=== PATIENT | male | born 1945 | race Caucasian/White ===

== ENCOUNTER 2017-12-13 11:57 | Day surgery (SDC) | payer OTHER, SELFPAY ==
--- NOTE | 2017-12-13 | PATH_ITS ---
[facility] Accession Number: [id number] . 01 Material submitted: . PART A: POLYP AT 100CM PART B: POLYP AT 65CM . 02 Diagnosis: A. Colon Polyp at 100 cm, Polypectomy: Tubular adenoma. . B. Colon Polyp at 65 cm, Biopsy: Hyperplastic polyp. MRV/12/14/2017 . 02 Electronically signed: . Myke Garcia MD, PhD, Pathologist NPI- [id number] . 01 Gross description: . Received two formalin-filled containers both labeled with the patient's name. . A. In a container labeled polyp at 100 cm are two 0.2 to 0.3 cm portions of tissue. Entirely submitted in cassette A. B. In a container labeled polyp at 65 cm, the specimen consists of a 0.2 cm portion of tissue. Entirely submitted in cassette B. ([facility]:[id number]) /[facility] . 02 Pathologist provided ICD-10: D12.6 . 02 CPT . 342850, [id number] Performed at: 01 [facility] [address], [place], [place] [id number] MD Mike Conde MD Phone: [phone] Performed at: 02 [facility] [address] [place], [place] [id number] MD Paras Flores MD Phone: [phone]
[2017-12-13 12:25] VITALS: BP 131/82; PULSE 74; RESP 16; TEMP 37; O2SAT 94; BMI 32.2
[2017-12-13] MEDS: SODIUM CHLORIDE 0.9% 1,000 ML 200 ML IV (12:45)
--- NOTE | 2017-12-13 13:23 | PM.HP.1 ---
History of Present Illness Date Patient Seen: 12/13/17 Time Patient Seen: 13:23 Chief complaint: colonoscopy [id number] Narrative: Marlin 72-year-old gentleman who presents for screening colonoscopy. He reports that his last colonoscopy was 10 or 15 years ago. It was done at [facility] and he says they found 5 small polyps. He just received a letter in the mail recently telling him that it was time to repeat the procedure. He denies any problems or symptoms related to the function of the GI tract. 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 He denies any unexplained weight loss. He reports that his energy is wonderful. Patient History Family & Social History Family History: Reviewed 12/13/17 by Naz Coffman MD Social History: household members spouse Meds Home Medications Medication Instructions Recorded Confirmed Type CHOLECALCIFEROL (VITAMIN D3) 400 unit PO QDAY #0 08/17/12 12/13/17 History (Vitamin D3) Terazosin HCl (TERAZOSIN HCL) 1 mg PO QDAY #0 08/17/12 12/13/17 History [RED YEAST RICE] QDAY #0 08/17/12 History bupropion HCl 150 mg PO BID #0 08/17/12 12/13/17 History enalapril maleate 20 mg PO BID #0 08/17/12 12/13/17 History hydrochlorothiazide 25 mg PO QDAY #0 08/17/12 12/13/17 History levothyroxine 0.125 mg PO QDAY #0 08/17/12 12/13/17 History liothyronine [Cytomel] 5 mcg PO QDAY #0 08/17/12 12/13/17 History simvastatin [Zocor] 20 mg PO HS #0 08/17/12 12/13/17 History verapamil 240 mg PO BID #0 08/17/12 12/13/17 History amlodipine 10 mg 12/13/17 History magnesium 250 mg 12/13/17 History potassium 12/13/17 History Allergies Allergy/AdvReac Type Severity Reaction Status Date / Time No Known Drug Allergies Allergy Verified 12/13/17 12:12 Review of Systems Review of Systems All systems reviewed & are unremarkable except as noted in HPI and below Exam Vital Signs (past 8 hours): - 12/13/17 12:25 Temperature 98.6 F Pulse Rate 74 Respiratory Rate 16 Blood Pressure 131/82 Pulse Oximetry 94 Oxygen Delivery Method Room Air Narrative Exam Narrative: Pleasant, well-nourished, and well-developed gentleman in no distress. HEENT: Normocephalic atraumatic, pupils equal round reactive light accommodation with anicteric sclera Lungs: Clear bilaterally Heart: Regular rate rhythm without murmur rub or gallop Abdomen: Soft, nontender, active bowel sounds Extremities: Warm and well perfused without edema Assessment & Plan Plan: Assessment/Plan Narrative: Marlin 72-year-old gentleman here for screening colonoscopy. He does have a personal history of colon polyps but no family history of colon cancer. We discussed risks and benefits of procedure the patient has expressed desire to complete it today.
--- NOTE | 2017-12-13 13:26 | P.HP_ITS ---
History of Present Illness Date Patient Seen: 12/13/17 Time Patient Seen: 13:23 Chief complaint: colonoscopy [id number] Narrative: Marlin 72-year-old gentleman who presents for screening colonoscopy. He reports that his last colonoscopy was 10 or 15 years ago. It was done at [facility] and he says they found 5 small polyps. He just received a letter in the mail recently telling him that it was time to repeat the procedure. He denies any problems or symptoms related to the function of the GI tract. 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 He denies any unexplained weight loss. He reports that his energy is wonderful. Patient History Family & Social History Family History: Reviewed 12/13/17 by Naz Coffman MD Social History: household members spouse Meds Home Medications Medication Instructions Recorded Confirmed Type CHOLECALCIFEROL (VITAMIN D3) 400 unit PO QDAY #0 08/17/12 12/13/17 History (Vitamin D3) Terazosin HCl (TERAZOSIN HCL) 1 mg PO QDAY #0 08/17/12 12/13/17 History [RED YEAST RICE] QDAY #0 08/17/12 History bupropion HCl 150 mg PO BID #0 08/17/12 12/13/17 History enalapril maleate 20 mg PO BID #0 08/17/12 12/13/17 History hydrochlorothiazide 25 mg PO QDAY #0 08/17/12 12/13/17 History levothyroxine 0.125 mg PO QDAY #0 08/17/12 12/13/17 History liothyronine [Cytomel] 5 mcg PO QDAY #0 08/17/12 12/13/17 History simvastatin [Zocor] 20 mg PO HS #0 08/17/12 12/13/17 History verapamil 240 mg PO BID #0 08/17/12 12/13/17 History amlodipine 10 mg 12/13/17 History magnesium 250 mg 12/13/17 History potassium 12/13/17 History Allergies Allergy/AdvReac Type Severity Reaction Status Date / Time No Known Drug Allergies Allergy Verified 12/13/17 12:12 Review of Systems Review of Systems All systems reviewed & are unremarkable except as noted in HPI and below Exam Vital Signs (past 8 hours): - 12/13/17 12:25 Temperature 98.6 F Pulse Rate 74 Respiratory Rate 16 Blood Pressure 131/82 Pulse Oximetry 94 Oxygen Delivery Method Room Air Narrative Exam Narrative: Pleasant, well-nourished, and well-developed gentleman in no distress. HEENT: Normocephalic atraumatic, pupils equal round reactive light accommodation with anicteric sclera Lungs: Clear bilaterally Heart: Regular rate rhythm without murmur rub or gallop Abdomen: Soft, nontender, active bowel sounds Extremities: Warm and well perfused without edema Assessment & Plan Plan: Assessment/Plan Narrative: Mralin 72-year-old gentleman here for screening colonoscopy. He does have a personal history of colon polyps but no family history of colon cancer. We discussed risks and benefits of procedure the patient has expressed desire to complete it today.
[2017-12-13] MEDS: fentaNYL 250 MCG/5 ML INJ IV (13:54)
[2017-12-13] MEDS: MIDAZOLAM 5 MG/5 ML VIAL IV (13:54)
--- NOTE | 2017-12-13 14:00 | P.OP_ITS ---
Operative Date/Time/Diagnoses Date of procedure: 12/13/17 Time of procedure: 13:56 Pre-op diagnosis: Personal history of colon polyps Screening colonoscopy Post-op diagnosis: same Procedure & Clinicians Procedure: Colonoscopy to the cecum with polypectomy x2 Same procedure as scheduled: Yes Indications: Last colonoscopy more than 10 years ago Surgeon: Naz Coffman Click Yes if Unassisted: Yes Anesthesia Type: Sedation (Versed 8 mg; fentanyl 200 mcg) Operative Notes Findings: 1. Excellent prep 2. A semi pedunculated polyp at 100 cm from the anal verge, approximately 5 mm- removed with snare and cautery and retained for pathology 3. A 2nd sessile polyp-approximately 3 mm-at 65 cm from the anal verge. Removed with cold forceps and retained for pathology 4. Mildly tortuous sigmoid colon 5. Grade 1-2 internal hemorrhoids 6. Sigmoid diverticulosis without false passages, inflammation, or stigmata of recent hemorrhage. Closure Type: not applicable Specimen(s): other (Polyps listed above) Estimated Blood Loss (mL): 1 Procedure in detail: After obtaining informed consent, the patient was brought to the GI suite and placed in the left lateral decubitus position on the examination table. After placement of appropriate monitors, the patient was given incremental doses of Versed and Fentanyl until an appropriate level of sedation was achieved. A time out was held per SCOAP protocol. A digital rectal examination was performed and did not reveal any masses or obstructing lesions. The colonoscope was gently passed into the patient's anus and the entire colon navigated to the level of the cecum with minimal difficulty. Once in the cecum, the scope was withdrawn being sure to go before and beyond all mucosal folds and prominences and get an excellent examination. The findings are noted above. At the level of the rectal vault, the scope was retroflexed and the internal anal canal was examined. The scope was straightened and air aspirated from the colon. The instrument was removed from the patient's body and the procedure was concluded. The patient was allowed to awaken from sedation without difficulty and taken to the post-anesthesia care unit in good condition. Total sedation time 23 min Total withdrawal time 19 min 33 sec Complications: none Condition: stable Disposition: PACU Plan for aftercare: 1. Discharge to home 2. Plan for next colonoscopy in 5 years or as clinically indicated 3. We will contact you with pathology results and any additional recommendations or change in recommendation based on pathology.
[2017-12-13 14:07] VITALS: BP 128/80; PULSE 63; RESP 15; TEMP 36.7; O2SAT 93
--- NOTE | 2017-12-13 14:12 | SUR.PHASEII ---
OPERATIVE REPORT GIVEN TO PATIENT AT DISCHARGE PER DR. MCKEON.
== END 2017-12-13 14:19 | disposition home or self-care (01) ==
PROVIDERS: PCP Internal Medicine; Visit Provider Surgery
PROC: 0DJD8ZZ Inspection of Lower Intestinal Tract, Via Natural or Artificial Opening Endoscopic (ICD-10-PCS; CPT 45378; principal; 2017-12-13 13:00)
DX: Z86.010 Personal history of colon polyps (principal); K64.1 Second degree hemorrhoids; K57.30 Diverticulosis of large intestine without perforation or abscess without bleeding; D12.6 Benign neoplasm of colon, unspecified
CPT/HCPCS: 45385; 45380; 99152; 99153; J2250; J3010

== ENCOUNTER → 2017-12-20 07:42 | Outpatient (CLI) | payer OTHER, SELFPAY ==
[2017-12-20 08:36] LABS: Add Manual Diff / Slide Review NO; Basophils Percent Auto 1.1 % (0-2); Eosinophils Percent Auto 6.9 % (2-4); Hematocrit 41.2 % (41-53); Hemoglobin 14.2 g/dL (13.5-17.5); Lymphocytes Percent Auto 31.1 % (25-40); Mean Corpuscular HGB Conc 34.5 % (30-36); Mean Corpuscular Hemoglobin 32.5 PG (26-34); Mean Corpuscular Volume 94.2 fL (80-100); Monocytes Percent Auto 9.3 % (3-14); Neutrophils Absolute Auto 3200 /uL (3000-5900); Neutrophils Percent Auto 51.6 % (50-75); Platelet Count 208 X10^3/uL (150-400); Red Blood Cell Count 4.37 X10^6/uL (4.5-5.9); Red Cell Distribution Width 12.5 % (11.6-14.8); White Blood Cell Count 6.2 X10^3/uL (4.5-11.0)
[2017-12-20 08:52] LABS: Alanine Aminotransferase 32 IU/L (21-72); Albumin Globulin Ratio 1.5 (1.0-2.8); Alkaline Phosphatase 75 U/L (38-126); Aspartate Aminotransferase 22 IU/L (17-59); BUN Creatinine Ratio 19.1 (6-22); Bilirubin Total 0.4 mg/dL (0.2-1.3); Blood Urea Nitrogen 21 mg/dL (9-20); Carbon Dioxide 24 mmol/L (22-32); Chloride 106 mmol/L (98-107); Cholesterol 140 mg/dL (140-199); Estimated Glomerular Filt Rate > 60.0 mL/min (>60); Globulin 2.6 g/dL (1.7-4.1); Glucose 123 mg/dL (80-110); HDL Cholesterol 39 mg/dL (40-60); HEMOLYSIS < 15 (0-50); LDL Cholesterol Calculated 78 mg/dL (<100); Potassium 3.8 mmol/L (3.4-5.1); Sodium 145 mmol/L (137-145); Total Protein 6.6 g/dL (6.3-8.2); Triglycerides 116 mg/dL (35-150)
== END ==
PROVIDERS: PCP Internal Medicine; Visit Provider Internal Medicine
DX: I10 Essential (primary) hypertension (principal); E78.00 Pure hypercholesterolemia, unspecified; E03.9 Hypothyroidism, unspecified
CPT/HCPCS: 36415; 80053; 80061; 84443; 85025

== ENCOUNTER → 2018-06-14 09:59 | Outpatient (CLI) | payer OTHER, SELFPAY ==
[2018-06-14 11:15] LABS: Free T3, Triiodothyronine Free 4.04 pg/mL (2.77-5.27); Free T4, Direct Thyroxine 1.14 ng/dL (0.78-2.19)
[2018-06-14 11:28] LABS: Thyroid Stimulating Hormone 1.78 uIU/mL (0.47-4.68)
== END ==
PROVIDERS: PCP Internal Medicine; Visit Provider Internal Medicine
DX: E03.9 Hypothyroidism, unspecified (principal)
CPT/HCPCS: 36415; 84439; 84443; 84481

== ENCOUNTER → 2018-07-14 10:29 | Outpatient (CLI) | payer OTHER, SELFPAY ==
[2018-07-14 11:27] LABS: Appearance Urine UA CLEAR; Bilirubin Urine UA NEGATIVE (NEGATIVE); Color Urine UA YELLOW; Glucose Urine UA NEGATIVE (Negative); Ketones Urine UA NEGATIVE (NEGATIVE); Leukocyte Esterase Urine UA NEGATIVE (NEGATIVE); Nitrite Urine UA NEGATIVE (Negative); Occult Blood Urine UA 1+ (Negative); Protein Urine UA NEGATIVE (Negative); Specific Gravity Urine UA 1.015 (1.000-1.035); Urobilinogen Urine UA 0.2 E.U./dL (0.2); pH Urine UA 6.5 (4.5-8.0)
[2018-07-14 11:38] LABS: Bacteria Urine Occasional (0-1); RBC Urine 0-1/HPF (0-5/HPF); WBC Urine 0-1/HPF (0-5/HPF)
[2018-07-14 11:39] LABS: Culture Indicated Urine Cult Not Indicated
== END ==
PROVIDERS: PCP Internal Medicine; Visit Provider Internal Medicine
DX: N40.1 Benign prostatic hyperplasia with lower urinary tract symptoms (principal)
CPT/HCPCS: 81001

== ENCOUNTER → 2019-01-15 10:04 | Outpatient (CLI) | payer OTHER, SELFPAY ==
[2019-01-15 11:27] LABS: Alanine Aminotransferase 23 IU/L (<50); Albumin 4.1 g/dL (3.5-5.0); Albumin Globulin Ratio 1.5 (1.0-2.8); Alkaline Phosphatase 68 U/L (38-126); Aspartate Aminotransferase 26 IU/L (17-59); BUN Creatinine Ratio 18.3 (6-22); Bilirubin Total 0.6 mg/dL (0.2-1.3); Blood Urea Nitrogen 22 mg/dL (9-20); Calcium 9.5 mg/dL (8.4-10.2); Carbon Dioxide 29 mmol/L (22-32); Chloride 102 mmol/L (98-107); Cholesterol 162 mg/dL (140-199); Estimated Glomerular Filt Rate 59.5 mL/min (>60); Globulin 2.7 g/dL (1.7-4.1); Glucose 112 mg/dL (80-110); HDL Cholesterol 40 mg/dL (40-60); HEMOLYSIS < 15 (0-50); LDL Cholesterol Calculated 98 mg/dL (<100); Potassium 3.8 mmol/L (3.4-5.1); Sodium 136 mmol/L (137-145); Total Protein 6.8 g/dL (6.3-8.2); Triglycerides 121 mg/dL (35-150)
[2019-01-15 11:58] LABS: TSH w/ Reflex to FT4 2.62 uIU/mL (0.47-4.68)
== END ==
PROVIDERS: PCP Internal Medicine; Visit Provider Internal Medicine
DX: I10 Essential (primary) hypertension (principal); E78.00 Pure hypercholesterolemia, unspecified; F32.9 Major depressive disorder, single episode, unspecified; E03.9 Hypothyroidism, unspecified
CPT/HCPCS: 36415; 80053; 80061; 84443

== ENCOUNTER → 2019-08-17 08:34 | Outpatient (CLI) | payer MEDICARE, SELFPAY ==
[2019-08-17 10:33] LABS: BUN Creatinine Ratio 21.1 (6-22); Blood Urea Nitrogen 27 mg/dL (9-20); Calcium 9.2 mg/dL (8.4-10.2); Carbon Dioxide 26 mmol/L (22-32); Chloride 104 mmol/L (98-107); Estimated Glomerular Filt Rate 55.2 mL/min (>60); Glucose 103 mg/dL (80-110); HEMOLYSIS < 15 (0-50); Sodium 137 mmol/L (137-145)
== END ==
PROVIDERS: PCP Internal Medicine; Referring Provider Internal Medicine; Visit Provider Internal Medicine
DX: I10 Essential (primary) hypertension (principal); E03.9 Hypothyroidism, unspecified
CPT/HCPCS: 36415; 80048; 84443

== ENCOUNTER → 2020-02-11 09:00 | Outpatient (CLI) | payer MEDICARE, SELFPAY ==
--- NOTE | 2020-02-11 | DI.US.S_ITS ---
PROCEDURE: US EXTREMITY NONVASC UPPER LT INDICATIONS: Localized swelling, mass and lump, left upper limb TECHNIQUE: Real-time scanning was performed of the area of current clinical concern, left clavicle/shoulder area, with image documentation. COMPARISON: None. FINDINGS: There is an ovoid fluid-filled structure in the area of current clinical concern without elevated internal or peripheral vascularity, containing small amounts of low level internal echoes, mobile, measuring up to 1.8 x 2.8 x 3.4 cm. This is superior to the clavicle in this area. IMPRESSION: Uncertain etiology of an oval fluid-filled collection containing a small amount of internal debris in the area of current left-sided clinical concern, left clavicle area. No internal or abnormal peripheral blood flow. Further assessment by contrast-enhanced MR scanning may be warranted. Dictated by: Ajith Gaines M.D. on 02/11/2020 at 9:33 Approved by: Ajith Gaines M.D. on 02/11/2020 at 9:36
== END ==
PROVIDERS: PCP Internal Medicine; Referring Provider Physician Assistant; Visit Provider Physician Assistant
DX: R22.32 Localized swelling, mass and lump, left upper limb (principal)
CPT/HCPCS: 76882

== ENCOUNTER → 2020-02-26 09:35 | Outpatient (CLI) | payer MEDICARE, SELFPAY ==
--- NOTE | 2020-02-26 | DI.MRI.S_ITS ---
PROCEDURE: MR SHOULDER LT WO/W CON INDICATIONS: LOCALIZED SWELLING/MASS TECHNIQUE: Noncontrast oblique coronal T1 spin echo and T2 fast spin echo with fat saturation, oblique sagittal T1 spin echo and T2 fast spin echo with fat saturation, axial T1 spin echo and T2 fast spin echo with fat saturation through the shoulder. Post-contrast oblique coronal, oblique sagittal, and axial T1 spin echo with fat saturation through the shoulder. COMPARISON: None. FINDINGS: Image quality: Excellent. Rotator cuff: Full-thickness tear of the supraspinatus and infraspinatus tendons noted, measuring 3.9 cm in AP dimension as seen on sagittal pulse sequences. Teres minor appears grossly intact. Subscapularis tendinopathy and thickening with high-grade partial thickness articular sided tear. No definite muscle atrophy seen although there is fatty infiltration of the infraspinatus muscle. Bones and bursae: No bone marrow contusions or fractures. Moderate acromioclavicular joint degeneration. Adjacent to the AC joint, there is a large T2 hyperintense modular is cystic appearing lesion with peripheral rim enhancement. This is in the area marked by the fiducial placed on the skin surface. This measures 2.8 x 2.9 by 2.1 cm. Acromion demonstrates conventional anatomy, without an os acromiale. Capsule and soft tissues: Labrum: Circumferential, chronic macerated labral tear/degeneration.. Medial subluxation of the long head biceps tendon is seen. No definite complete rupture, although there is tendinopathy The rotator interval appears normal, without fibrosis. Coracohumeral ligament intact. IMPRESSION: Large cystic appearing lesion in the area of pain and palpable abnormality. No definite internal enhancement. Findings are technically nonspecific and recommend clinical correlation/management. Full-thickness tear of the supraspinatus and infraspinatus tendons. High-grade partial thickness articular sided tear of the subscapularis tendon with associated medial subluxation of the long head biceps tendon. Circumferential chronic ill-defined degenerative tear. Dictated by: Stefan He M.D. on 02/26/2020 at 11:31 Approved by: Stefan He M.D. on 02/26/2020 at 11:48
== END ==
PROVIDERS: PCP Internal Medicine; Referring Provider Physician Assistant; Visit Provider Physician Assistant
DX: R22.32 Localized swelling, mass and lump, left upper limb (principal); M75.122 Complete rotator cuff tear or rupture of left shoulder, not specified as traumatic; M19.012 Primary osteoarthritis, left shoulder
CPT/HCPCS: 73223

== ENCOUNTER → 2020-05-21 07:32 | Outpatient (CLI) | payer OTHER, SELFPAY ==
[2020-05-21 08:58] LABS: BUN Creatinine Ratio 20.5 (6-22); Blood Urea Nitrogen 24 mg/dL (9-20); Calcium 8.9 mg/dL (8.4-10.2); Carbon Dioxide 26 mmol/L (22-32); Chloride 105 mmol/L (98-107); Estimated Glomerular Filt Rate > 60.0 mL/min (>60); Glucose 108 mg/dL (80-110); HEMOLYSIS < 15 (0-50); Potassium 3.7 mmol/L (3.4-5.1); Sodium 139 mmol/L (137-145)
[2020-05-21 09:43] LABS: TSH w/ Reflex to FT4 3.36 uIU/mL (0.47-4.68)
== END ==
PROVIDERS: PCP Internal Medicine; Referring Provider Internal Medicine; Visit Provider Internal Medicine
DX: I10 Essential (primary) hypertension (principal); E03.9 Hypothyroidism, unspecified
CPT/HCPCS: 36415; 80048; 84443

== ENCOUNTER → 2020-09-16 15:51 | Outpatient (CLI) | payer OTHER, SELFPAY ==
--- NOTE | 2020-09-16 15:54 | DI.RAD.S_ITS ---
PROCEDURE: XR SHOULDER RT MIN 2V INDICATIONS: fall against right shoulder TECHNIQUE: 3 views of the shoulder were acquired. COMPARISON: [facility], , SHOULDER MINIMUM 2 VIEW LEFT, 02/19/2013, 3:06. FINDINGS: Bones: No fractures or dislocations. No suspicious bony lesions. Visualized ribs appear intact. Mild periarticular osteophyte formation at the acromioclavicular and glenohumeral joints. Soft tissues: No suspicious soft tissue calcifications. IMPRESSION: Osteoarthritis. No acute fracture. No osseous lesion. If symptoms and/or clinical suspicion for pathology persist, further assessment with repeat, or advanced imaging (e.g., CT, MRI, or bone scan) may be helpful for further assessment. Dictated by: Georgie Nuñez M.D. on 09/16/2020 at 16:50 Approved by: Georgie Nuñez M.D. on 09/16/2020 at 16:51
== END ==
PROVIDERS: PCP Internal Medicine; Referring Provider Physician Assistant; Visit Provider Physician Assistant
DX: M25.511 Pain in right shoulder (principal); M19.011 Primary osteoarthritis, right shoulder
CPT/HCPCS: 73030

== ENCOUNTER → 2020-11-21 08:49 | Outpatient (CLI) | payer OTHER, SELFPAY ==
[2020-11-21 10:04] LABS: Add Manual Diff / Slide Review NO; Basophils Absolute Auto 100 /uL (0-100); Basophils Percent Auto 0.9 % (0-2); Eosinophils Absolute Auto 300 /uL (0-450); Eosinophils Percent Auto 4.2 % (2-4); Hematocrit 41.5 % (41-53); Hemoglobin 13.8 g/dL (13.5-17.5); Lymphocytes Absolute Auto 1800 /uL (1100-4500); Lymphocytes Percent Auto 30.1 % (25-40); Mean Corpuscular HGB Conc 33.2 % (30-36); Mean Corpuscular Hemoglobin 31.5 PG (26-34); Mean Corpuscular Volume 94.8 fL (80-100); Monocytes Absolute Auto 500 /uL (0-900); Monocytes Percent Auto 7.8 % (3-14); Neutrophils Absolute Auto 3500 /uL (1500-7000); Platelet Count 228 X10^3/uL (150-400); Red Blood Cell Count 4.38 X10^6/uL (4.5-5.9); Red Cell Distribution Width 13.8 % (11.6-14.8); White Blood Cell Count 6.1 X10^3/uL (4.5-11.0)
[2020-11-21 10:23] LABS: Alanine Aminotransferase 16 IU/L (<50); Albumin Globulin Ratio 1.6 (1.0-2.8); Alkaline Phosphatase 98 U/L (38-126); Aspartate Aminotransferase 22 IU/L (17-59); BUN Creatinine Ratio 18.7 (6-22); Bilirubin Total 0.2 mg/dL (0.2-1.3); Blood Urea Nitrogen 20 mg/dL (9-20); Calcium 9.7 mg/dL (8.4-10.2); Carbon Dioxide 27 mmol/L (22-32); Chloride 106 mmol/L (98-107); Cholesterol 150 mg/dL (140-199); Estimated Glomerular Filt Rate > 60.0 mL/min (>60); Globulin 2.5 g/dL (1.7-4.1); Glucose 111 mg/dL (80-110); HDL Cholesterol 57 mg/dL (40-60); HEMOLYSIS < 15 (0-50); LDL Cholesterol Calculated 70 mg/dL (<100); Sodium 142 mmol/L (137-145); Total Protein 6.5 g/dL (6.3-8.2); Triglycerides 115 mg/dL (35-150)
[2020-11-21 10:52] LABS: Prostate Specific Antigen 3.54 ng/mL (0.10-4.00)
== END ==
PROVIDERS: PCP Internal Medicine; Referring Provider Internal Medicine; Visit Provider Internal Medicine
DX: N18.9 Chronic kidney disease, unspecified (principal); I10 Essential (primary) hypertension; R97.20 Elevated prostate specific antigen [PSA]
CPT/HCPCS: 36415; 80053; 80061; 84153; 85025

== ENCOUNTER 2021-03-09 18:12 | Emergency (ER) | payer OTHER, SELFPAY ==
[2021-03-09 18:25] VITALS: BP 185/81; PULSE 63; RESP 18; TEMP 36.6; O2SAT 99
--- NOTE | 2021-03-09 18:38 | DI.US.S_ITS ---
PROCEDURE: US PERIPH VENOUS LOW EXTREM RT INDICATIONS: PAIN, EDEMA; HX DVT TECHNIQUE: Real-time imaging, as well as color and pulse Doppler interrogation, were performed of the lower extremity deep veins from the inguinal ligament to the popliteal fossa. COMPARISON: None. FINDINGS: The common femoral, femoral and popliteal veins are normally compressible, and free of intraluminal thrombus. Color and pulse Doppler demonstrate normal phasic intraluminal flow. There is normal augmentation response to distal compression maneuver. IMPRESSION: 1. No evidence of deep venous thrombosis in the right lower extremity. Dictated by: Mike Taylor M.D. on 03/09/2021 at 20:26 Approved by: Mike Taylor M.D. on 03/09/2021 at 20:27
--- NOTE | 2021-03-09 20:11 | ED.EXTPRO ---
HPI - Extremity Problem General Chief complaint: Extremity Problem,Nontraumatic Stated complaint: HX Blood Clots, Thinks Blood Clot in Rt Leg Time Seen by Provider: 03/09/21 20:05 Source: patient Mode of arrival: Ambulatory History of Present Illness HPI Narrative: Patient here for ongoing 1 week constant right medial knee discomfort. Does not interfere with his walking. No chest pain no dyspnea. No known injury. No hip or ankle or foot pain. No numbness or tingling or weakness to the right leg. Or foot. History of to blood clots to the right leg back in 2012. Stop taking anticoagulation because he ran out of it back in 2012. Has been doing well since then. He thinks he developed the DVTs back then because he was immunization in was traveling a lot. Blood pressure noted. He states he slightly anxious because wondering if there was another blood clot. Related Data Home Medications Medication Instructions Recorded Confirmed CHOLECALCIFEROL (VITAMIN D3) 400 unit PO QDAY #0 08/17/12 09/16/20 (Vitamin D3) Terazosin HCl (TERAZOSIN HCL) 1 mg PO QDAY #0 08/17/12 09/16/20 [RED YEAST RICE] QDAY #0 08/17/12 09/16/20 bupropion HCl 75 mg tablet 150 mg PO BID #0 08/17/12 09/16/20 enalapril maleate 20 mg tablet 20 mg PO BID #0 08/17/12 09/16/20 hydrochlorothiazide 25 mg tablet 25 mg PO QDAY #0 08/17/12 09/16/20 levothyroxine 112 mcg tablet 0.125 mg PO QDAY #0 08/17/12 09/16/20 liothyronine 5 mcg tablet (Cytomel) 5 mcg PO QDAY #0 08/17/12 09/16/20 simvastatin 20 mg tablet (Zocor) 20 mg PO HS #0 08/17/12 09/16/20 verapamil 240 mg tablet,extended 240 mg PO BID #0 08/17/12 09/16/20 release amlodipine 10 mg 12/13/17 09/16/20 magnesium 250 mg 12/13/17 09/16/20 potassium 12/13/17 09/16/20 Allergies Allergy/AdvReac Type Severity Reaction Status Date / Time No Known Drug Allergies Allergy Verified 09/16/20 21:04 Review of Systems Review of Systems Narrative: GENERAL: Denies chills, fatigue, malaise, fever, sweats. HEENT: Denies sinus pain, ear pain, sore throat RESPIRATORY: Denies dyspnea, cough CARDIOVASCULAR: Denies chest pain, palpitations GASTROINTESTINAL: Denies nausea, vomiting, abdominal pain : Denies dysuria, frequency, hematuria MUSCULOSKELETAL: Positive muscle or bony pain SKIN: Denies rash, skin lesions NEUROLOGIC: Denies weakness, numbness ROS Unobtainable: All systems reviewed & are unremarkable except as noted in HPI and below Patient History Social History household members: spouse Smoking Status: Never smoker Smoking Status: Never smoker alcohol intake frequency: 0-2 drinks per day Exam Narrative Exam Narrative: GENERAL: in no distress, not toxic not dyspneic HEAD: Normocephalic. EYES: Pupils equal round No scleral icterus. NECK: Trachea midline. CARDIOVASCULAR: Regular rate and rhythm without murmurs RESPIRATORY: Clear to auscultation. Breath sounds equal bilaterally. No wheezes, rales, or rhonchi. EXTREMITIES: No gross deformities. Pants removed. Shoes and socks removed, leg and foot warm soft and pink. Strong pedal pulse. Like to check to foot and toes. Examination right knee. There is no pain or laxity of the right knee with anterior posterior medial lateral and rotational stress of the right leg. No overlying erythema or effusion of the knee. Negative Candace and Coon test. No palpable cords in the calf. Calf is nontender. BACK: No flank tenderness. NEURO: AOx4. SKIN: Warm and dry PSYCH: Not anxious, is cooperative Initial Vital Signs Initial Vital Signs: Vital Signs Temperature 97.9 F 03/09/21 18:25 Pulse Rate 63 03/09/21 18:25 Respiratory Rate 18 03/09/21 18:25 Blood Pressure 185/81 H 03/09/21 18:25 Pulse Oximetry 99 03/09/21 18:25 Course Course Course Narrative: No new issues during course of stay. Orders Ordered: ED Orders 03/09/21 18:38 US periph venous low extrem rt Stat Reevaluation(s) Reevaluation #1: Reviewed preliminary results of ultrasound the leg with patient. He is not want to wait for final report. At this time no DVT preliminary. Blood pressure noted. He does not want any treatment for his blood pressure. States it is always high and he will follow up with his family doctor. Time: 20:15 Vital Signs Vital signs: Vital Signs - 8 hr 03/09/21 18:25 Temperature 97.9 F Pulse Rate 63 Respiratory Rate 18 Blood Pressure 185/81 H Pulse Oximetry 99 MDM - Extremity (Nontraumatic) Differential Diagnosis Differential diagnosis: Likely superficial thrombophlebitis, deep venous thrombosis of upper extremity, deep vein thrombosis of lower extremity and other (New fusion/arthritis) Imaging Data US - DVT: Radiologist's Impression: [address] [address] Ultrasound Report Signed Patient: Chan Pablo MR#: [id number] : 1945 Acct:[id number] Age/Sex: 75 / M Date of Service: 03/09/21 Loc: ED Accession Number: [id number] ?? Procedure: US periph venous low extrem rt Ordering Provider: Matthew Agustin MD PROCEDURE:? US PERIPH VENOUS LOW EXTREM RT ? INDICATIONS:? PAIN, EDEMA; HX DVT ? TECHNIQUE:? Real-time imaging, as well as color and pulse Doppler interrogation, were performed of the lower extremity deep veins from the inguinal ligament to the popliteal fossa.? ? COMPARISON:? None. ? FINDINGS:? The common femoral, femoral and popliteal veins are normally compressible, and free of intraluminal thrombus.? Color and pulse Doppler demonstrate normal phasic intraluminal flow.? There is normal augmentation response to distal compression maneuver. ? ? IMPRESSION:? ? 1. No evidence of deep venous thrombosis in the right lower extremity. ? ? Dictated by: Mike Taylor M.D. on 03/09/2021 at 20:26 ? ? Approved by: Mike Taylor M.D. on 03/09/2021 at 20:27 ? [facility] Narrative Medical decision making narrative: Appropriate for discharge home. Exam and imaging reassuring. Blood pressure reviewed patient. He does not want any treatment here. He states he will follow up with his family doctor. No chest or lung complains no numbness tingling weakness no headache. Patient does know any imaging of the knee. Denies any direct knee pain. No injury. No pain with walking. He states he feels much better regarding ultrasound results. Return precautions reviewed with him. Discharge Plan Departure Patient Disposition: Home Clinical Impression: Acute pain of right knee Instructions: DI for Knee Pain Activity Restrictions/Additional Instructions: Return if worse if any questions or concerns. Call provided orthopedic office tomorrow for office recheck in a week. Return if any chest pain shortness breath or any calf pain. Prescriptions: No Action enalapril maleate 20 MG tablet 20 mg PO BID Qty: 0 0RF bupropion HCl 75 MG tablet 150 mg PO BID Qty: 0 0RF verapamil 240 MG tablet extended release 240 mg PO BID Qty: 0 0RF liothyronine [Cytomel] 5 MCG tablet 5 mcg PO QDAY Qty: 0 0RF hydrochlorothiazide 25 MG tablet 25 mg PO QDAY Qty: 0 0RF levothyroxine 112 MCG tablet 0.125 mg PO QDAY Qty: 0 0RF simvastatin [Zocor] 20 MG tablet 20 mg PO HS Qty: 0 0RF CHOLECALCIFEROL (VITAMIN D3) (Vitamin D3) 400 unit PO QDAY Qty: 0 0RF Label Comments: hasn't taken in months Terazosin HCl (TERAZOSIN HCL) 1 mg PO QDAY Qty: 0 0RF [RED YEAST RICE] QDAY Qty: 0 0RF amlodipine 10 mg 10 mg 0RF magnesium 250 mg 250 mg 0RF potassium 0RF Referrals: Teodoro Hickey MD [Physician] - Valeria Toney MD [Primary Care Provider] -
== END 2021-03-09 20:23 | disposition home or self-care (01) ==
PROVIDERS: Emergency Provider Emergency Medicine; PCP Internal Medicine
DX: M25.561 Pain in right knee (principal)
CPT/HCPCS: 93971; 99281; 99283

== ENCOUNTER 2021-07-29 12:43 | Emergency (ER) | payer OTHER, SELFPAY ==
[2021-07-29 12:51] VITALS: BP 190/91; PULSE 72; RESP 15; TEMP 36.8; O2SAT 97; BMI 32.3
--- NOTE | 2021-07-29 12:58 | DI.US.S_ITS ---
PROCEDURE: US PERIP VENOUS LOW EXTREM RT INDICATIONS: rule out DVT TECHNIQUE: Real-time imaging, as well as color and pulse Doppler interrogation, were performed of the lower extremity deep veins from the inguinal ligament to the popliteal fossa. COMPARISON: [facility], , [facility] VENOUS LOW EXTREM RT, 03/09/2021, 19:05. FINDINGS: The common femoral, femoral and popliteal veins are normally compressible, and free of intraluminal thrombus. Color and pulse Doppler demonstrate normal phasic intraluminal flow. There is normal augmentation response to distal compression maneuver. IMPRESSION: No deep venous thrombosis. Dictated by: Ju Bradley M.D. on 07/29/2021 at 13:30 Approved by: Ju Bradley M.D. on 07/29/2021 at 13:30
--- NOTE | 2021-07-29 13:53 | DI.RAD.S_ITS ---
PROCEDURE: XR KNEE RT 3V INDICATIONS: swelling, pain, osteoarth/effusion? TECHNIQUE: 3 views of the knee were acquired. COMPARISON: None. FINDINGS: Bones: No fractures or dislocations. No suspicious bony lesions. Moderate medial, lateral and minimal to mild patellofemoral compartment narrowing. No erosions. There is linear calcification overlying the lateral patella. Soft tissues: Moderate joint effusion. No suspicious soft tissue calcifications. IMPRESSION: Moderate effusion. Linear calcification overlying the lateral patella suggestive of osteophyte. However, avulsion fracture cannot be definitively excluded if correlates with given history of trauma. Tricompartmental arthritic changes present. Dictated by: Ju Bradley M.D. on 07/29/2021 at 15:20 Approved by: Ju Bradley M.D. on 07/29/2021 at 15:23
--- NOTE | 2021-07-29 14:47 | ED.EXTPRO ---
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 Patient states that his right knee feels tight and has swelling in the posterior aspect. He denies any lower extremity edema that is new, he states that he has been up on his feet and staying busy over the last few days and has not done anything significantly exertional. Patient denies any recent fever, feeling ill, weakness, sensation changes, or any of those symptoms. Related Data Home Medications Medication Instructions Recorded Confirmed CHOLECALCIFEROL (VITAMIN D3) 400 unit PO QDAY ##0 08/17/12 09/16/20 (Vitamin D3) Terazosin HCl (TERAZOSIN HCL) 1 mg PO QDAY ##0 08/17/12 09/16/20 [RED YEAST RICE] QDAY ##0 08/17/12 09/16/20 bupropion HCl 75 mg tablet 150 mg PO BID ##0 08/17/12 09/16/20 enalapril maleate 20 mg tablet 20 mg PO BID ##0 08/17/12 09/16/20 hydrochlorothiazide 25 mg tablet 25 mg PO QDAY ##0 08/17/12 09/16/20 levothyroxine 112 mcg tablet 0.125 mg PO QDAY ##0 08/17/12 09/16/20 liothyronine 5 mcg tablet (Cytomel) 5 mcg PO QDAY ##0 08/17/12 09/16/20 simvastatin 20 mg tablet (Zocor) 20 mg PO HS ##0 08/17/12 09/16/20 verapamil 240 mg tablet,extended 240 mg PO BID ##0 08/17/12 09/16/20 release amlodipine 10 mg 12/13/17 09/16/20 magnesium 250 mg 12/13/17 09/16/20 potassium 12/13/17 09/16/20 Previous Rx's Medication Instructions Recorded diclofenac sodium 1 % topical gel 4 g topical QID PRN knee pain #100 07/29/21 grams Allergies Allergy/AdvReac Type Severity Reaction Status Date / Time No Known Drug Allergies Allergy Verified 07/29/21 12:52 Review of Systems <JASEN Amaya - Last Filed: 07/29/21 18:27> Review of Systems Narrative: General: denies fever, chills Head/Neck: denies headache, neck pain Eyes: denies visual changes, eye pain Cardio: denies chest pain, palpitations Respiratory: denies shortness of breath, cough GI: denies abdominal pain, nausea, vomiting, or diarrhea : denies dysuria, hematuria or flank pain MSK: Endorses right knee pain the posterior aspect and swelling, denies any muscle weakness, sensation changes, or wound Skin: denies rash, itching or wound Neuro: denies numbness, tingling, dizziness Patient History <JASEN Amaya - Last Filed: 07/29/21 18:27> Social History household members: spouse Smoking Status: Never smoker Smoking Status: Never smoker alcohol intake frequency: 0-2 drinks per day Substance Use Type: does not use Exam <JASEN Amaya - Last Filed: 07/29/21 18:27> Narrative Exam Narrative: Independently reviewed vitals signs and nursing notes. General: cooperative, comfortable, in no acute distress, well groomed Head: symmetrical facial expressions Eyes: equal round and reactive, EOMI, conjunctiva normal Nose: nares patent, no rhinorrhea Mouth/Throat: moist mucus membranes Cardiovascular: regular rate and rhythm, no peripheral edema, warm extremities, no dependent edema Respiratory: normal effort, able to speak in complete sentences, no audible wheezing, stridor, or rales. No retractions or tachypnea. GI: abdomen soft, nontender to palpation, nondistended, no masses, no exquisite tenderness with exam, without guarding or rebound. MSK: moves all extremities, neurovascularly intact, no weakness, normal tone Skin: brisk capillary refill, no rash, no erythema, edema to the posterior of his right knee, no tenderness to palpation, it is mild, no suprapatellar tenderness, no tenderness over LCL, MCL, patellar tendon, no discoloration, no fluctuance or open wound is. Neuro: normal speech and cognition, A&O x3 Psych: mental status is grossly normal, congruent mood, normal affect, pleasant and cooperative Initial Vital Signs Initial Vital Signs: Vital Signs Temperature 98.3 F 07/29/21 12:51 Pulse Rate 72 07/29/21 12:51 Respiratory Rate 15 07/29/21 12:51 Blood Pressure 190/91 H 07/29/21 12:51 Pulse Oximetry 97 07/29/21 12:51 Oxygen Delivery Method 07/29/21 12:51 <Mili Landry MD - Last Filed: 08/02/21 08:52> Initial Vital Signs Initial Vital Signs: Vital Signs Temperature 98.3 F 07/29/21 12:51 Pulse Rate 72 07/29/21 12:51 Respiratory Rate 15 07/29/21 12:51 Blood Pressure 190/91 H 07/29/21 12:51 Pulse Oximetry 97 07/29/21 12:51 Oxygen Delivery Method 07/29/21 12:51 Course <JASEN Amaya - Last Filed: 07/29/21 18:27> Orders Ordered: ED Orders 07/29/21 12:58 US periph venous low extrem rt Stat 07/29/21 13:53 XR knee RT 3V Stat Vital Signs Vital signs: Vital Signs - 8 hr 07/29/21 12:51 07/29/21 15:31 07/29/21 15:34 Temperature 98.3 F Pulse Rate 72 80 Respiratory Rate 15 18 Blood Pressure 190/91 H 191/101 H 176/106 H Pulse Oximetry 97 98 Oxygen Delivery Method Room Air Room Air <Mili Landry MD - Last Filed: 08/02/21 08:52> Orders Ordered: ED Orders 07/29/21 12:58 US periph venous low extrem rt Stat 07/29/21 13:53 XR knee RT 3V Stat Vital Signs Vital signs: Vital Signs - 8 hr 07/29/21 12:51 07/29/21 15:31 07/29/21 15:34 Temperature 98.3 F Pulse Rate 72 80 Respiratory Rate 15 18 Blood Pressure 190/91 H 191/101 H 176/106 H Pulse Oximetry 97 98 Oxygen Delivery Method Room Air Room Air MDM - Extremity (Nontraumatic) <Maki Jones, [facility] - Last Filed: 07/29/21 18:27> Imaging Data US - DVT: Radiologist's Impression: PROCEDURE:? US PERIPH VENOUS LOW EXTREM RT ? INDICATIONS:? rule out DVT ? TECHNIQUE:? Real-time imaging, as well as color and pulse Doppler interrogation, were performed of the lower extremity deep veins from the inguinal ligament to the popliteal fossa.? ? COMPARISON:? [facility], PERIPH VENOUS LOW EXTREM RT, 03/09/2021, 19:05. ? FINDINGS:? The common femoral, femoral and popliteal veins are normally compressible, and free of intraluminal thrombus.? Color and pulse Doppler demonstrate normal phasic intraluminal flow.? There is normal augmentation response to distal compression maneuver. ? ? IMPRESSION:? No deep venous thrombosis. ? ? Dictated by: Ju Bradley M.D. on 07/29/2021 at 13:30 ? ? Approved by: Ju Bradley M.D. on 07/29/2021 at 13:30 ? Extremity x-ray #1: Radiologist's Impression: PROCEDURE:? XR KNEE RT 3V ? INDICATIONS:? swelling, pain, osteoarth/effusion? ? TECHNIQUE:? 3 views of the knee were acquired.? ? COMPARISON:? None. ? FINDINGS:? ? Bones:? No fractures or dislocations.? No suspicious bony lesions.? Moderate medial, lateral and minimal to mild patellofemoral compartment narrowing.? No erosions.? There is linear calcification overlying the lateral patella. ? Soft tissues:? Moderate joint effusion.? No suspicious soft tissue calcifications.? ? ? IMPRESSION:? Moderate effusion.? Linear calcification overlying the lateral patella suggestive of osteophyte.? However, avulsion fracture cannot be definitively excluded if correlates with given history of trauma. ? Tricompartmental arthritic changes present. ? ? Dictated by: Ju Bradley M.D. on 07/29/2021 at 15:20 ? ? Approved by: Ju Bradley M.D. on 07/29/2021 at 15:23 ? MDM Narrative Medical decision making narrative: This is a pleasant 75-year-old male presents to the emergency department with posterior right knee swelling and sensation of taut skin with concern for DVT as patient has had a right lower extremity DVT in the past, most recently in 2010 and this is how he states it presented. Vascular ultrasound of peripheral venous lower extremity was negative for deep venous thrombosis, right knee x-ray obtained for likely joint effusion consideration, x-ray report shows tricompartmental arthritic changes present with a moderate effusion, linear calcification overlying the lateral patella suggestive of an osteophyte. Patient denies any recent trauma. Discussed immobilizing and patient states that he is quite active and does not feel like his knee is unstable at this time. Discussed wrapping with a compression bandage, he states that this is likely more realistic for him. Recommended this, rest, ice, topical Voltaren gel, Tylenol and more rest if it continues to be bothersome. Patient is appropriate and amenable to discharge home. Vital signs are stable on repeat examination is unremarkable. Patient has been informed of results. Patient has been given strict return to ER precautions for any new or worsening symptoms. Patient understands to follow up closely with outpatient providers as instructed. Patient understands plan and agrees to discharge home. All questions and concerns answered at this time. Discharge Plan Departure Patient Disposition: Home Clinical Impression: Edema of knee Instructions: DI for Knee Effusion, DI for Knee Pain, How to Apply an Elastic Wrap on Knee Activity Restrictions/Additional Instructions: *You have been diagnosed with soft tissue swelling behind her right knee without evidence of a deep vein thrombosis or a clot. This could be inflammation related to activity, you may try Voltaren gel, it is available [id number] or I have sent some to your pharmacy at [facility]. Please use ice and rest at the end of your day as long as you need to. Your last creatinine was 1.07 with a GFR over 60 however I would recommend avoiding NSAIDs orally to help preserve your kidney function. Make sure you are drinking plenty of water, resting, you may use an Srikanth bandage to help compress this so that is not swelling as large asit wants. Please follow-up with Dr. Toney if you have any ongoing concerns about this, or return to the emergency department if you have any sensation changes, worsening pain or swelling or signs of infection. Your x-ray does not show any fracture, it will be available to review online later, sorry it wasn't available to review today. *What to do: *Please continue to take your regular medications as directed. [x ] New medication prescriptions sent to your pharmacy: [ [facility]] [ ] New medication written as a paper prescription [ ] No new medications given *Please follow up with your primary care provider in 2-3 days, call for an appointment. Let them know you were seen in the Emergency Department and that we asked that you be seen for follow-up. We will electronically transmit a record of today's note if your PCP is in our system *If you do not have a primary care provider please contact [phone] to establish care with one of the [facility] primary care providers. *Return to Emergency Department if you should have any new, worsening or concerning symptoms, such as [fever greater than 101F, chills, worsening pain, persistent vomiting or other bothersome symptoms] Prescriptions: New diclofenac sodium 1 % gel 4 g topical QID PRN (Reason: knee pain) Qty: 100 0RF Rx Instructions: apply to single extremity location up to 4 times daily for pain and swelling. No Action enalapril maleate 20 MG tablet 20 mg PO BID Qty: 0 bupropion HCl 75 MG tablet 150 mg PO BID Qty: 0 verapamil 240 MG tablet extended release 240 mg PO BID Qty: 0 liothyronine [Cytomel] 5 MCG tablet 5 mcg PO QDAY Qty: 0 hydrochlorothiazide 25 MG tablet 25 mg PO QDAY Qty: 0 levothyroxine 112 MCG tablet 0.125 mg PO QDAY Qty: 0 simvastatin [Zocor] 20 MG tablet 20 mg PO HS Qty: 0 CHOLECALCIFEROL (VITAMIN D3) (Vitamin D3) 400 unit PO QDAY Qty: 0 Label Comments: hasn't taken in months Terazosin HCl (TERAZOSIN HCL) 1 mg PO QDAY Qty: 0 [RED YEAST RICE] QDAY Qty: 0 amlodipine 10 mg 10 mg magnesium 250 mg 250 mg potassium Referrals: Valeria Toney MD [Primary Care Provider] - Visit Report Forms: Patient Portal/API <Mili Landry MD - Last Filed: 08/02/21 08:52> Cosign ED Attending Anaature Attestation: I was immediately available in the department for consultation throughout this patient's visit. I agree with documentation as above. Mili Landry MD
[2021-07-29 15:31] VITALS: BP 191/101; PULSE 80; RESP 18; O2SAT 98
[2021-07-29 15:34] VITALS: BP 176/106
== END 2021-07-29 15:34 | disposition home or self-care (01) ==
PROVIDERS: Emergency Provider Nurse Practitioner Critical Care Medicine; PCP Internal Medicine
DX: M25.461 Effusion, right knee (principal)
CPT/HCPCS: 73562; 93971; 99281; 99283

== ENCOUNTER 2021-11-24 16:20 | Emergency (ER) | payer OTHER, SELFPAY ==
[2021-11-24 16:36] VITALS: BP 179/84; PULSE 62; RESP 18; TEMP 37.1; O2SAT 97
--- NOTE | 2021-11-24 16:38 | DI.RAD.S_ITS ---
PROCEDURE: XR CHEST 1V INDICATIONS: chest pain TECHNIQUE: One view of the chest was acquired. COMPARISON: None. FINDINGS: Surgical changes and devices: None. Lungs and pleura: Lungs are clear. No pleural effusions or pneumothorax. Mediastinum: Mediastinal contours appear normal. Heart size is normal. Bones and chest wall: No suspicious bony lesions. Overlying soft tissues appear unremarkable. IMPRESSION: No acute cardiopulmonary process demonstrated radiographically. Dictated by: Fredis Leggett M.D. on 11/24/2021 at 16:52 Approved by: Fredis Leggett M.D. on 11/24/2021 at 16:53
[2021-11-24 17:00] LABS: Add Manual Diff / Slide Review NO; Basophils Absolute Auto 0 /uL (0-100); Basophils Percent Auto 0.6 % (0-2); Eosinophils Absolute Auto 100 /uL (0-450); Eosinophils Percent Auto 2.2 % (2-4); Hemoglobin 15.4 g/dL (13.5-17.5); Lymphocytes Absolute Auto 2000 /uL (1100-4500); Lymphocytes Percent Auto 32.4 % (25-40); Mean Corpuscular HGB Conc 35.1 % (30-36); Mean Corpuscular Hemoglobin 32.6 PG (26-34); Monocytes Absolute Auto 500 /uL (0-900); Neutrophils Absolute Auto 3400 /uL (1500-7000); Neutrophils Percent Auto 55.8 % (50-75); Platelet Count 200 X10^3/uL (150-400); Red Blood Cell Count 4.73 X10^6/uL (4.5-5.9); Red Cell Distribution Width 12.8 % (11.6-14.8); White Blood Cell Count 6.1 X10^3/uL (4.5-11.0)
[2021-11-24 17:43] LABS: Alanine Aminotransferase 29 IU/L (<50); Albumin 4.3 g/dL (3.5-5.0); Albumin Globulin Ratio 1.3 (1.0-2.8); Alkaline Phosphatase 78 U/L (38-126); Aspartate Aminotransferase 30 IU/L (17-59); BUN Creatinine Ratio 15.9 (6-22); Bilirubin Total 0.6 mg/dL (0.2-1.3); Blood Urea Nitrogen 17 mg/dL (9-20); Calcium 9.4 mg/dL (8.4-10.2); Carbon Dioxide 24 mmol/L (22-32); Chloride 103 mmol/L (98-107); Creatine Kinase 103 U/L (55-170); Estimated Glomerular Filt Rate > 60 mL/min (>60); Globulin 3.2 g/dL (1.7-4.1); Glucose 101 mg/dL (80-110); HEMOLYSIS 26 (0-50); Lipase 86 U/L (23-300); Magnesium 2.2 mg/dL (1.6-2.3); Potassium 3.9 mmol/L (3.4-5.1); Sodium 140 mmol/L (137-145); Total Protein 7.5 g/dL (6.3-8.2)
[2021-11-24 17:54] LABS: Troponin I < 0.012 ng/mL (0.01-0.034)
[2021-11-24 17:58] LABS: CKMB % Relative Index 0.6 % (1.5-5.0)
[2021-11-24 20:06] VITALS: PULSE 69; O2SAT 97
[2021-11-24 20:10] VITALS: BP 173/92; PULSE 69; RESP 15; O2SAT 97
--- NOTE | 2021-11-24 20:10 | PC.NURSE ---
To room from triage - ambulatory with steady gait - placed on bladder cleaner with cycling BP and continuous pulse ox - denies chest pain at this time - states that he had a couple small events of the same discomfort in the WR but they have resolved - denies this feeling before as well as cardiac concerns other than HTN - states that it is a discomfort instead as opposed to a pain - denies changes with palpation of inspiration - states that a deep breath helps it feel better - states that the discomfort comes on and resolves within a few seconds - denies radiation, difficulty breathing or swallowing - feels fine otherwise - alert and oriented - PWD with respirations equal and unlabored bilaterally
--- NOTE | 2021-11-24 20:23 | ED_ITS ---
HPI - Chest Pain General Chief Complaint: Chest Pain Stated Complaint: chest discomfort, ache Time Seen by Provider: 11/24/21 20:09 Source: patient Mode of arrival: Ambulatory History of Present Illness HPI narrative: Patient's sendy 76 year old male who has history his DVT, but not on anticoagulation, hypertension hyperlipidemia presenting with chest discomfort. To the started yesterday rest it lasts for about 5 seconds at a time it comes and goes fairly regularly. Denies any pain with exertion no radiation of his pain. They are leaving on a road trip tomorrow and he wanted to get checked out his. He does not have pain now. He is not dizzy or lightheaded. No fever chills or cough. Related Data Home Medications Medication Instructions Recorded Confirmed CHOLECALCIFEROL (VITAMIN D3) 400 unit PO QDAY ##0 08/17/12 09/16/20 (Vitamin D3) Terazosin HCl (TERAZOSIN HCL) 1 mg PO QDAY ##0 08/17/12 09/16/20 [RED YEAST RICE] QDAY ##0 08/17/12 09/16/20 bupropion HCl 75 mg tablet 150 mg PO BID ##0 08/17/12 09/16/20 enalapril maleate 20 mg tablet 20 mg PO BID ##0 08/17/12 09/16/20 hydrochlorothiazide 25 mg tablet 25 mg PO QDAY ##0 08/17/12 09/16/20 levothyroxine 112 mcg tablet 0.125 mg PO QDAY ##0 08/17/12 09/16/20 liothyronine 5 mcg tablet (Cytomel) 5 mcg PO QDAY ##0 08/17/12 09/16/20 simvastatin 20 mg tablet (Zocor) 20 mg PO HS ##0 08/17/12 09/16/20 verapamil 240 mg tablet,extended 240 mg PO BID ##0 08/17/12 09/16/20 release amlodipine 10 mg 12/13/17 09/16/20 magnesium 250 mg 12/13/17 09/16/20 potassium 12/13/17 09/16/20 Previous Rx's Medication Instructions Recorded diclofenac sodium 1 % topical gel 4 g topical QID PRN knee pain #100 07/29/21 grams Allergies Allergy/AdvReac Type Severity Reaction Status Date / Time No Known Drug Allergies Allergy Verified 07/29/21 12:52 Review of Systems Review of Systems Narrative: GENERAL: Denies chills, fatigue, malaise, fever, sweats, travel HEENT: Denies sinus pain, ear pain, sore throat, difficulty swallowing, neck pain RESPIRATORY: Denies dyspnea, cough, wheezing, hemoptysis, sputum. CARDIOVASCULAR: See HPI GASTROINTESTINAL: Denies nausea, vomiting, abdominal pain, diarrhea, constipation, melena. : Denies dysuria, frequency, incontinence, hematuria, urinary retention, flank pain. MUSCULOSKELETAL: Denies weakness, joint pain, or bony pain SKIN: No rash, no erythema, no pruritus NEUROLOGIC: Denies weakness, dizziness, headache, numbness, change in speech, confusion PSYCHIATRIC: No concerning psychosocial issues. 12 point review of systems is negative except for those stated above and HPI Patient History Medical History (Updated 11/25/21 @ 06:39 by Nupur Jamison DO) DVT (deep venous thrombosis) Hypertension Social History household members: spouse Smoking Status: Never smoker Smoking Status: Never smoker alcohol intake frequency: 0-2 drinks per day Substance Use Type: does not use Exam Initial Vital Signs Initial Vital Signs: Vital Signs Temperature 98.8 F 11/24/21 16:36 Pulse Rate 62 11/24/21 16:36 Respiratory Rate 18 11/24/21 16:36 Blood Pressure 179/84 H 11/24/21 16:36 Pulse Oximetry 97 11/24/21 16:36 Oxygen Delivery Method 11/24/21 16:36 GENERAL: Alert pleasant 76 year old and in no acute distress. HEENT: Head atraumatic,EOMI, pupils reactive, face symmetric, moist mucous membranes CARDIOVASCULAR: Regular rate and rhythm without murmurs, rubs or gallops. RESPIRATORY: Breath sounds equal bilaterally, no wheezes rales or rhonchi. ABDOMEN: Soft, nontender. Normoactive bowel sounds all 4 quadrants. No g uarding or rebound. EXTREMITIES: Normal range of motion, no clubbing or edema. Neurovascularly inta ct NEUROLOGICAL: Alert and oriented x4. No deficit SKIN: Warm, dry, no laceration, no petechiae, no rashes or lesions. Course Orders Ordered: ED Orders 11/24/21 16:38 XR chest 1V Stat EKG-12 Lead Stat 11/24/21 16:44 Complete Blood Count AUTO DIFF Stat Comprehensive Metabolic Panel Stat Lipase Stat Magnesium Stat Troponin & CK Cardiac Panel Stat 11/24/21 20:15 Trop I [Troponin I] Stat Vital Signs Vital signs: Vital Signs - 8 hr 11/24/21 16:36 11/24/21 20:06 11/24/21 20:10 Temperature 98.8 F Pulse Rate 62 69 69 Respiratory Rate 18 15 Blood Pressure 179/84 H Pulse Oximetry 97 97 97 Oxygen Delivery Method Room Air 11/24/21 20:10 11/24/21 20:30 11/24/21 20:30 Temperature Pulse Rate 59 L Respiratory Rate 15 Blood Pressure 173/92 H 162/84 H Pulse Oximetry 96 Oxygen Delivery Method MDM - Chest Pain Lab Data Result diagrams: 11/24/21 16:44 11/24/21 16:44 Labs: Lab Results 11/24/21 11/24/21 11/24/21 Range/Units 16:44 16:44 20:15 WBC 6.1 (4.5-11.0) X10^3/uL RBC 4.73 (4.5-5.9) X10^6/uL Hgb 15.4 (13.5-17.5) g/dL Hct 44.0 (41-53) % MCV 93.0 (80-100) fL MCH 32.6 (26-34) PG MCHC 35.1 (30-36) % RDW 12.8 (11.6-14.8) % Plt Count 200 (150-400) X10^3/uL Neut % (Auto) 55.8 (50-75) % Lymph % (Auto) 32.4 (25-40) % White % (Auto) 9.0 (3-14) % Eos % (Auto) 2.2 (2-4) % Baso % (Auto) 0.6 (0-2) % Neut # (Auto) 3400 (3562-7686) /uL Lymph # (Auto) 2000 (4610-4489) /uL White # (Auto) 500 (0-900) /uL Eos # (Auto) 100 (0-450) /uL Baso # (Auto) 0 (0-100) /uL Sodium 140 (137-145) mmol/L Potassium 3.9 (3.4-5.1) mmol/L Chloride 103 (98-107) mmol/L Carbon Dioxide 24 (22-32) mmol/L BUN 17 (9-20) mg/dL Creatinine 1.07 (0.66-1.25) mg/dL Estimated GFR > 60 (>60) mL/min BUN/Creatinine Ratio 15.9 (6-22) Glucose 101 (80-110) mg/dL Calcium 9.4 (8.4-10.2) mg/dL Magnesium 2.2 (1.6-2.3) mg/dL Total Bilirubin 0.6 (0.2-1.3) mg/dL AST 30 (17-59) IU/L ALT 29 (<50) IU/L Alkaline Phosphatase 78 (38-126) U/L Total Creatine Kinase 103 (55-170) U/L CK-MB (CK-2) 0.60 (<2.37) ng/mL CK-MB (CK-2) Rel Index 0.6 L (1.5-5.0) % Troponin I < 0.012 < 0.012 (0.01-0.034) ng/mL Total Protein 7.5 (6.3-8.2) g/dL Albumin 4.3 (3.5-5.0) g/dL Globulin 3.2 (1.7-4.1) g/dL Albumin/Globulin Ratio 1.3 (1.0-2.8) Lipase 86 (23-300) U/L Imaging Data Chest x-ray: Radiologist's Impression: tient: Chan Pablo MR#: [id number] : 1945 Acct:[id number] Age/Sex: 76 / M Date of Service: 11/24/21 Loc: ED Accession Number: [id number] ?? Procedure: XR chest 1V Ordering Provider: Paola Alvarado D.O. PROCEDURE:? XR CHEST 1V ? INDICATIONS:? chest pain ? TECHNIQUE:? One view of the chest was acquired.? ? COMPARISON:? None. ? FINDINGS:? ? Surgical changes and devices:? None.? ? Lungs and pleura:? Lungs are clear.? No pleural effusions or pneumothorax.? ? Mediastinum:? Mediastinal contours appear normal.? Heart size is normal.? ? Bones and chest wall:? No suspicious bony lesions.? Overlying soft tissues appear unremarkable.? ? IMPRESSION:? No acute cardiopulmonary process demonstrated radiographically. ? ? Dictated by: Fredis Leggett M.D. on 11/24/2021 at 16:52 ? ? ECG Data Interpretation: Normal sinus rhythm rate 60 p.r. interval 234 QRS [address] changes no T-wave inversions no priors to compare MDM Narrative Medical decision making narrative: Patient has a very remote history of DVT 10 years ago after long airplane flight. Signs and symptoms today do not correlate with any sort of pulmonary embolism or coronary artery disease. All pain lasting only a few seconds and is not consistent or constant cough. He does have some mild risk factors including hypertension hyperlipidemia and age. However at this time I did discuss with him he may still need a stress test but does not need to stay in the hospital. I encouraged him to get out and walk frequently so he did not have recurrence of DVT Discharge Plan Departure Patient Disposition: Home Clinical Impression: Atypical chest pain Instructions: DI for Atypical Chest Pain Activity Restrictions/Additional Instructions: *You have been diagnosed with atypical chest pain *What to do: I hope you have a wonderful trip. Please get out of her car and walk frequently so you do not get a DVT. You may also do calf exercises while sitting. You may still need a stress test and echocardiogram with your primary care provider Please bring a copy of your EKG with you in case you should have any problem while traveling *Continue to take medications as directed *Follow up with your primary care provider in 2-3 days or call [phone] *Return to ER if you should have increasing chest pain shortness of breath [or] any new, worsening or concerning symptoms Prescriptions: No Action enalapril maleate 20 MG tablet 20 mg PO BID Qty: 0 bupropion HCl 75 MG tablet 150 mg PO BID Qty: 0 verapamil 240 MG tablet extended release 240 mg PO BID Qty: 0 liothyronine [Cytomel] 5 MCG tablet 5 mcg PO QDAY Qty: 0 hydrochlorothiazide 25 MG tablet 25 mg PO QDAY Qty: 0 levothyroxine 112 MCG tablet 0.125 mg PO QDAY Qty: 0 simvastatin [Zocor] 20 MG tablet 20 mg PO HS Qty: 0 CHOLECALCIFEROL (VITAMIN D3) (Vitamin D3) 400 unit PO QDAY Qty: 0 Label Comments: hasn't taken in months Terazosin HCl (TERAZOSIN HCL) 1 mg PO QDAY Qty: 0 [RED YEAST RICE] QDAY Qty: 0 amlodipine 10 mg 10 mg magnesium 250 mg 250 mg potassium diclofenac sodium 1 % gel 4 g topical QID PRN (Reason: knee pain) Qty: 100 0RF Rx Instructions: apply to single extremity location up to 4 times daily for pain and swelling. Referrals: Valeria Toney MD [Primary Care Provider] - Visit Report Forms: Patient Portal/API
[2021-11-24 20:30] VITALS: BP 162/84; PULSE 59; RESP 15; O2SAT 96
--- NOTE | 2021-11-24 20:36 | PC.NURSE ---
Addendum entered by Leslee Melendez R.N. 11/24/21 20:37: drawn at 2015 Original Note: repeat troponin drawn at this time - tolerated well
--- NOTE | 2021-11-24 20:50 | PC.NURSE ---
Called to room by patient - states that he would like to go home - states that the doctor got pulled out of the room and he does not want to wait any more - explained that he was more than welcome to leave if that was what he wants - asking to be seen by another MD - explained that the doctor is the only one at this time and she will return as soon as possible - decided to stay at this time
[2021-11-24 20:54] LABS: Troponin I < 0.012 ng/mL (0.01-0.034)
[2021-11-24 21:00] VITALS: BP 172/83; PULSE 61; RESP 17; O2SAT 96
--- NOTE | 2021-11-24 21:13 | PC.NURSE ---
Repeat EKG performed at this time
== END 2021-11-24 21:29 | disposition home or self-care (01) ==
PROVIDERS: Emergency Medicine; Emergency Provider Emergency Medicine; PCP Internal Medicine
DX: R07.89 Other chest pain (principal)
CPT/HCPCS: 71045; 80053; 82550; 82553; 83690; 83735; 84484; 85025; 93005; 93010; 99281; 99284

== ENCOUNTER → 2021-12-29 09:09 | Outpatient (CLI) | payer OTHER, SELFPAY ==
[2021-12-29 10:03] LABS: COVID19 -Nasal RAPID Negative (Negative)
--- NOTE | 2021-12-30 20:26 | DI.NM.S_ITS ---
DATE OF SERVICE: 12/29/2021 PROCEDURE: Exercise perfusion study. INDICATION: Chest pain with underlying hypertension and hyperlipidemia. RADIOPHARMACEUTICAL: 27.5 millicurie technetium-99m Myoview IV was injected at stress and 25.4 millicurie technetium-99m Myoview IV was injected at rest. CARDIAC STRESS: The patient underwent exercise perfusion study under the supervision of an attending staff, as per standard protocol. The patient walked on Gómez protocol for 7 minutes and 01 seconds, achieved maximum heart rate of 127, which was 88 percent of target heart rate. Baseline blood pressure 138/82 and peak blood pressure 188/96 mmHg. The patient achieved 10.1 METs of workload and JOSE R -15 percent. Baseline rhythm was sinus with mild sinus bradycardia and repolarization changes. During exercise, there were some nonspecific ST-T changes without any convincing ischemic changes. In recovery, rare PVCs. No chest pain. Had moderate shortness of breath. RAW DATA: There is increased subdiaphragmatic activity. The patient's weight is 211 pounds. GATED STUDY: Resting LV ejection fraction 74 and stress LV ejection fraction 75 percent without any obvious wall motion abnormalities. Resting end-diastolic volume 117 mL. TID ratio 0.93, which is within normal limits. Lung/heart ratio 0.37, which is within normal limits. MYOCARDIAL PERFUSION SCAN: Stress supine, resting supine and stress prone images were compared to each other. Stress supine and resting supine images revealed small size, mildly decreased perfusion of basal inferior wall extending into the basal inferolateral wall, which got completely resolved during stress prone images, suggestive of diaphragmatic tissue attenuation artifact. Stress prone images revealed normal myocardial perfusion. CONCLUSION: This is a normal myocardial perfusion study with evidence of diaphragmatic tissue attenuation artifact, which got resolved during prone images. Good exercise tolerance. Functional aerobic impairment -15 percent. No chest pain. Preserved left ventricular function. No complex arrhythmias seen. Overall, low-risk myocardial perfusion scan. Samy Chan - STEPH/froylan/helena doc#: [id number]/job#: [id number] dd: 12/30/2021 17:19:00 dt: 12/30/2021 19:18:00 DICTATING MD/COPIES TO: Linda Foley MD COPIES MNE: VIVIANA;
== END ==
PROVIDERS: PCP Internal Medicine; Referring Provider Internal Medicine; Visit Provider Internal Medicine
DX: R07.9 Chest pain, unspecified (principal); I10 Essential (primary) hypertension; E78.5 Hyperlipidemia, unspecified; Z20.822 Contact with and (suspected) exposure to COVID-19
CPT/HCPCS: 78452; 87635; 93017; A9502

== ENCOUNTER → 2022-02-19 08:27 | Outpatient (CLI) | payer MEDICARE, SELFPAY ==
--- NOTE | 2022-02-19 | DI.RAD.S_ITS ---
PROCEDURE: FL UPPER GI W AIR INDICATIONS: Dysphagia, pharyngoesophageal phase COMPARISON: None. 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 No suspicious abdominal calcifications. Visualized solid organ contours appear normal. Bony structures appear unremarkable. Esophagus: Esophageal mucosa is normal on air-contrast views. On single-contrast views, there is normal esophageal peristalsis. No strictures, extrinsic mass effects, or diverticula. No hiatal hernia or elicited gastroesophageal reflux. There is normal transit of a calibrated barium tablet through the esophagus. Stomach: The stomach is normally distensible, with normal rugal fold thickness. No mucosal masses or ulcers. Pylorus and duodenal bulb appear normal in morphology. Duodenal folds are normal in thickness as well. IMPRESSION: Normal barium swallow and upper GI. Dictated by: Ronald Amos M.D. on 02/19/2022 at 17:54 Approved by: Ronald Amos M.D. on 02/19/2022 at 17:55
== END ==
PROVIDERS: PCP Internal Medicine; Referring Provider Internal Medicine Gastroenterology; Visit Provider Internal Medicine Gastroenterology
DX: R13.14 Dysphagia, pharyngoesophageal phase (principal); R07.89 Other chest pain
CPT/HCPCS: 74246

== ENCOUNTER 2023-05-23 06:56 | Emergency (ER) | payer MEDICARE, SELFPAY ==
[2023-05-23] VITALS (36 sets, daily range): BP systolic 125–208; BP diastolic 71–104; PULSE 56–95; RESP 8–31; TEMP 36; O2SAT 92–98; BMI 33.0
--- NOTE | 2023-05-23 07:14 | DI.RAD.S_ITS ---
PROCEDURE: XR CHEST 1V INDICATIONS: chest pain TECHNIQUE: One view of the chest was acquired. COMPARISON: [facility], CR, XR CHEST 1V, 11/24/2021, 16:34. FINDINGS: Surgical changes and devices: None. Lungs and pleura: Lungs are clear. No pleural effusions or pneumothorax. Mediastinum: Mediastinal contours appear normal. Heart size is normal. Bones and chest wall: No suspicious bony lesions. Overlying soft tissues appear unremarkable. IMPRESSION: No acute cardiopulmonary abnormality is seen. Dictated by: Natalio Dyson M.D. on 05/23/2023 at 7:56 Approved by: Natalio yDson M.D. on 05/23/2023 at 7:57
[2023-05-23 07:21] LABS: Add Manual Diff / Slide Review NO; Basophils Absolute Auto 100 /uL (0-100); Basophils Percent Auto 0.8 % (0-2); Eosinophils Absolute Auto 300 /uL (0-450); Eosinophils Percent Auto 3.8 % (2-4); Hemoglobin 15.6 g/dL (13.5-17.5); Lymphocytes Absolute Auto 2100 /uL (1100-4500); Lymphocytes Percent Auto 29.6 % (25-40); Mean Corpuscular HGB Conc 34.7 % (30-36); Mean Corpuscular Hemoglobin 32.5 PG (26-34); Mean Corpuscular Volume 93.7 fL (80-100); Monocytes Absolute Auto 400 /uL (0-900); Monocytes Percent Auto 6.2 % (3-14); Neutrophils Absolute Auto 4100 /uL (1500-7000); Neutrophils Percent Auto 59.6 % (50-75); Platelet Count 221 X10^3/uL (150-400); Red Cell Distribution Width 13.5 % (11.6-14.8)
[2023-05-23 07:27] LABS: HEMOLYSIS < 15 (0-50)
[2023-05-23 07:29] LABS: Prothrombin Time 11.7 SECONDS (9.4-12.5)
[2023-05-23] MEDS: ASPIRIN 81 MG CHEW TAB 324 MG PO (07:30)
[2023-05-23 07:31] LABS: PTT Partial Thromboplastin Tim 35 SECONDS (25.1-36.5)
[2023-05-23 07:34] LABS: Alanine Aminotransferase 21 IU/L (<50); Albumin 4.4 g/dL (3.5-5.0); Albumin Globulin Ratio 1.3 (1.0-2.8); Alkaline Phosphatase 120 U/L (38-126); Aspartate Aminotransferase 25 IU/L (17-59); Bilirubin Total 0.4 mg/dL (0.2-1.3); Blood Urea Nitrogen 22 mg/dL (9-20); Calcium 9.4 mg/dL (8.4-10.2); Carbon Dioxide 28 mmol/L (22-32); Chloride 106 mmol/L (98-107); Creatine Kinase 149 U/L (55-170); Estimated Glomerular Filt Rate > 60 mL/min (>60); Globulin 3.4 g/dL (1.7-4.1); Glucose 150 mg/dL (80-110); Lipase 92 U/L (23-300); Magnesium 2.4 mg/dL (1.6-2.3); Sodium 141 mmol/L (137-145); Total Protein 7.8 g/dL (6.3-8.2)
--- NOTE | 2023-05-23 07:40 | ED.CHESTPAIN ---
HPI - Chest Pain General Chief Complaint: Chest Pain Stated Complaint: possible heart attack Time Seen by Provider: 05/23/23 07:19 Source: patient Mode of arrival: Ambulatory Limitations: no limitations History of Present Illness HPI narrative: This is a 77-year-old male with history of hypertension, dyslipidemia, hypothyroidism, BPH who presents with complaint of left-sided chest pain radiating to his shoulder, drawn upper back that woke him up from sleep at 4:00 a.m. today. Patient states sort of waxed and waned in intensity but never resolved. He states lying flat seemed to make it a little bit worse nothing seems to make it better. He has not had similar symptoms in the past. He feels a little bit short of breath. He has not been diaphoretic he has felt nauseated but not had any vomiting. No syncope. No issues with bowel movements or urination. Patient is noted to be hypertensive 180s over 1 teens initially on examination he states normally he runs 130s for his systolic. Denies any prior surgeries. No known drug allergies. No tobacco, drinks 2 oz of alcohol nightly, no recreational drugs. His primary care is Dr. Valeria Toney. His father did have an AK and stroke. Related Data Home Medications Medication Instructions Recorded Confirmed CHOLECALCIFEROL (VITAMIN D3) 400 unit PO QDAY ##0 08/17/12 01/24/23 (Vitamin D3) Terazosin HCl (TERAZOSIN HCL) 1 mg PO QDAY ##0 08/17/12 01/24/23 [RED YEAST RICE] QDAY ##0 08/17/12 01/24/23 enalapril maleate 20 mg tablet 20 mg PO BID ##0 08/17/12 01/24/23 hydrochlorothiazide 25 mg tablet 25 mg PO QDAY ##0 08/17/12 01/24/23 levothyroxine 112 mcg tablet 0.125 mg PO QDAY ##0 08/17/12 01/24/23 liothyronine 5 mcg tablet (Cytomel) 5 mcg PO QDAY ##0 08/17/12 01/24/23 verapamil 240 mg tablet,extended 240 mg PO BID ##0 08/17/12 01/24/23 release amlodipine 10 mg 12/13/17 01/24/23 magnesium 250 mg 12/13/17 01/24/23 potassium 12/13/17 01/24/23 atorvastatin 20 mg tablet 20 mg PO DAILY 09/16/22 01/24/23 terazosin 1 mg capsule 1 mg PO DAILY 09/16/22 01/24/23 Allergies Allergy/AdvReac Type Severity Reaction Status Date / Time No Known Drug Allergies Allergy Verified 05/23/23 07:12 Review of Systems Review of Systems ROS Unobtainable: All systems reviewed & are unremarkable except as noted in HPI and below Patient History Medical History DVT (deep venous thrombosis) Hypertension Social History household members: spouse Smoking Status: Never smoker Smoking Status: Never smoker alcohol intake frequency: 0-2 drinks per day Alcohol type: hard liquor Substance Use Type: does not use Exam Narrative Exam Narrative: GENERAL: Alert and oriented x three, male in mild distress. No diaphoresis. HEENT: Head normocephalic, atraumatic, EOMI, pupils reactive, face symmetric, moist mucous membranes NECK: Supple, full range of motion CARDIOVASCULAR: Regular rate and rhythm without murmurs, rubs or gallops. No JVD. No edema bilateral lower extremities. RESPIRATORY: Breath sounds equal bilaterally, no wheezes rales or rhonchi. No tachypnea accessory muscle use. ABDOMEN: Soft, nontender. Normoactive bowel sounds all 4 quadrants. No guarding or rebound, rigidity, no mass : No CVA tenderness EXTREMITIES: Normal range of motion, no clubbing or edema. Neurovascularly intact NEUROLOGICAL: Cranial nerves II through XII grossly intact. Moving all extremities SKIN: Warm, dry, no petechiae, no rashes or lesions. Initial Vital Signs Initial Vital Signs: Vital Signs Temperature 96.8 F L 05/23/23 07:06 Pulse Rate 77 05/23/23 07:06 Respiratory Rate 19 05/23/23 07:06 Blood Pressure 203/99 H 05/23/23 07:06 Pulse Oximetry 97 05/23/23 07:06 Oxygen Delivery Method Room Air 05/23/23 07:06 Course Orders Ordered: ED Orders 05/23/23 07:10 Complete Blood Count AUTO DIFF Stat Comprehensive Metabolic Panel Stat Lipase Stat Magnesium Stat PTT Partial Thromboplastin Gal Stat Prothrombin Time INR Stat Troponin & CK Cardiac Panel Stat 05/23/23 07:14 XR chest 1V Stat EKG-12 Lead Stat 05/23/23 08:35 CT angio chest abdomen pelvis Stat 05/23/23 09:10 Trop I [Troponin I] Stat 05/23/23 11:13 Trop I [Troponin I] Stat 05/23/23 16:20 PTT [PTT Partial Thromboplastin Gal] Stat 05/23/23 22:00 PTT Partial Thromboplastin Gal Q6H 05/24/23 04:00 PTT Partial Thromboplastin Gal Q6H 05/24/23 05:00 Hemoglobin and Hematocrit DAILY Platelet Count DAILY 05/25/23 05:00 Hemoglobin and Hematocrit DAILY Platelet Count DAILY Sodium Chloride (Normal Saline 0.9%) 1,000 mls @ 150 mls/hr IV CONT INDRA Last Infusion: 05/23/23 10:28 Dose: 0 mls/hr Documented By: Admin: 05/23/23 07:55 Dose: 150 mls/hr Documented By: CHRISTOFER Heparin Sodium/Dextrose (Heparin Drip) 25,000 unit in 500 mls @ 19.899 mls/hr IV CONT INDRA; Protocol Last Admin: 05/23/23 10:18 Dose: 10.7 units/kg/hr, 19.899 mls/hr Documented By: CHRISTOFER Co-signed By: JAKUB Nitroglycerin (Nitroglycerin) 50 mg in 250 mls @ 1.5 mls/hr IV TITRATE INDRA; Protocol Last Titration: 05/23/23 10:43 Dose: 15 mcg/min, 4.5 mls/hr Documented By: Titration: 05/23/23 10:25 Dose: 10 mcg/min, 3 mls/hr Documented By: Admin: 05/23/23 10:02 Dose: 5 mcg/min, 1.5 mls/hr Documented By: CHRISTOFER Nitroglycerin (Nitroglycerin 0.4 Mg Sl Tab) 0.4 mg SL [id number] PRN PRN Reason: Chest Pain Last Admin: 05/23/23 07:55 Dose: 0.4 mg Documented By: Admin: 05/23/23 07:43 Dose: 0.4 mg Documented By: CHRISTOFER Discontinued Medications Aspirin (Aspirin 81 Mg Chew Tab) 324 mg PO NOW ONE Stop: 05/23/23 07:15 Last Admin: 05/23/23 07:30 Dose: 243 mg Documented By: CHRISTOFER Heparin Sodium (Porcine) (Heparin 5,000 Unit/Ml Vial) 5,000 unit IV NOW ONE Stop: 05/23/23 09:56 Last Admin: 05/23/23 10:14 Dose: 5,000 unit Documented By: CHRISTOFER Metoprolol Tartrate (Metoprolol Ir 25 Mg Tablet) 25 mg PO NOW ONE Stop: 05/23/23 11:25 Last Admin: 05/23/23 11:43 Dose: 25 mg Documented By: TANYA Morphine Sulfate (Morphine 4 Mg/Ml Inj) 4 mg IV NOW ONE Stop: 05/23/23 08:10 Last Admin: 05/23/23 08:13 Dose: 4 mg Documented By: CHRISTOFER Morphine Sulfate (Morphine 4 Mg/Ml Inj) 4 mg IV NOW ONE Stop: 05/23/23 08:36 Last Admin: 05/23/23 08:54 Dose: 4 mg Documented By: CHRISTOFER Ondansetron HCl (Ondansetron 4 Mg/2 Ml Inj) 4 mg IV NOW ONE Stop: 05/23/23 07:53 Last Admin: 05/23/23 07:55 Dose: 4 mg Documented By: CHRISTOFER Vital Signs Vital signs: Vital Signs - 8 hr 05/23/23 07:06 05/23/23 07:09 05/23/23 07:30 Temperature 96.8 F L Pulse Rate 77 70 Respiratory Rate 19 16 Blood Pressure 203/99 H 184/103 H Pulse Oximetry 97 98 Oxygen Delivery Method Room Air 05/23/23 07:30 05/23/23 07:46 05/23/23 07:46 Temperature Pulse Rate 71 67 Respiratory Rate 11 L 22 Blood Pressure 189/104 H Pulse Oximetry 97 97 Oxygen Delivery Method 05/23/23 07:51 05/23/23 07:51 05/23/23 07:55 Temperature Pulse Rate 86 Respiratory Rate 31 H Blood Pressure 153/82 H 167/94 H Pulse Oximetry 96 Oxygen Delivery Method 05/23/23 07:55 05/23/23 08:00 05/23/23 08:00 Temperature Pulse Rate 78 75 Respiratory Rate 22 12 Blood Pressure 152/86 H Pulse Oximetry 96 96 Oxygen Delivery Method 05/23/23 08:07 05/23/23 08:07 05/23/23 08:30 Temperature Pulse Rate 75 59 L Respiratory Rate 15 20 Blood Pressure 138/82 Pulse Oximetry 96 97 Oxygen Delivery Method 05/23/23 08:54 05/23/23 08:54 05/23/23 09:00 Temperature Pulse Rate 69 56 L Respiratory Rate 13 8 L Blood Pressure 208/99 H Pulse Oximetry 98 98 Oxygen Delivery Method 05/23/23 09:01 05/23/23 09:01 05/23/23 09:20 Temperature Pulse Rate 65 Respiratory Rate 11 L Blood Pressure 174/96 H 175/96 H Pulse Oximetry 96 Oxygen Delivery Method 05/23/23 09:20 05/23/23 09:30 05/23/23 09:40 Temperature Pulse Rate 58 L 62 Respiratory Rate 14 22 Blood Pressure 192/99 H Pulse Oximetry 98 98 Oxygen Delivery Method 05/23/23 09:40 05/23/23 10:00 05/23/23 10:25 Temperature Pulse Rate 59 L 69 60 Respiratory Rate 17 19 11 L Blood Pressure Pulse Oximetry 98 96 Oxygen Delivery Method 05/23/23 10:25 05/23/23 10:30 05/23/23 10:30 Temperature Pulse Rate 65 Respiratory Rate 12 Blood Pressure 174/86 H 159/84 H Pulse Oximetry 95 Oxygen Delivery Method 05/23/23 10:35 05/23/23 10:35 05/23/23 10:40 Temperature Pulse Rate 61 Respiratory Rate 12 Blood Pressure 161/84 H 152/85 H Pulse Oximetry 93 Oxygen Delivery Method 05/23/23 10:40 05/23/23 10:45 05/23/23 10:45 Temperature Pulse Rate 72 72 Respiratory Rate 19 16 Blood Pressure 150/83 H Pulse Oximetry 95 93 Oxygen Delivery Method 05/23/23 10:50 05/23/23 10:50 05/23/23 10:55 Temperature Pulse Rate 71 Respiratory Rate 12 Blood Pressure 152/88 H 151/82 H Pulse Oximetry 92 Oxygen Delivery Method 05/23/23 10:55 05/23/23 11:00 05/23/23 11:00 Temperature Pulse Rate 72 71 Respiratory Rate 13 14 Blood Pressure 147/78 H Pulse Oximetry 93 92 Oxygen Delivery Method 05/23/23 11:05 05/23/23 11:05 05/23/23 11:10 Temperature Pulse Rate 75 Respiratory Rate 19 Blood Pressure 148/78 H 135/71 Pulse Oximetry 92 Oxygen Delivery Method 05/23/23 11:10 05/23/23 11:15 05/23/23 11:15 Temperature Pulse Rate 74 95 H Respiratory Rate 16 18 Blood Pressure 125/75 Pulse Oximetry 94 95 Oxygen Delivery Method 05/23/23 11:20 05/23/23 11:20 05/23/23 11:25 Temperature Pulse Rate 78 Respiratory Rate 14 Blood Pressure 135/78 137/80 Pulse Oximetry 96 Oxygen Delivery Method 05/23/23 11:25 05/23/23 11:30 05/23/23 11:30 Temperature Pulse Rate 77 74 Respiratory Rate 14 14 Blood Pressure 144/82 H Pulse Oximetry 93 93 Oxygen Delivery Method 05/23/23 11:35 05/23/23 11:35 05/23/23 11:40 Temperature Pulse Rate 74 Respiratory Rate 14 Blood Pressure 138/78 144/77 H Pulse Oximetry 93 Oxygen Delivery Method 05/23/23 11:40 05/23/23 11:45 05/23/23 11:45 Temperature Pulse Rate 75 71 Respiratory Rate 13 13 Blood Pressure 134/71 Pulse Oximetry 93 95 Oxygen Delivery Method 05/23/23 11:50 05/23/23 11:50 05/23/23 11:54 Temperature Pulse Rate 75 79 Respiratory Rate 13 21 Blood Pressure 140/76 Pulse Oximetry 94 94 Oxygen Delivery Method 05/23/23 11:55 Temperature Pulse Rate Respiratory Rate Blood Pressure 146/81 H Pulse Oximetry Oxygen Delivery Method MDM - Chest Pain Lab Data 05/23/23 07:10 05/23/23 07:10 Labs: Lab Results 05/23/23 05/23/23 05/23/23 Range/Units 07:10 09:10 11:13 WBC 7.0 (4.5-11.0) X10^3/uL RBC 4.80 (4.5-5.9) X10^6/uL Hgb 15.6 (13.5-17.5) g/dL Hct 45.0 (41-53) % MCV 93.7 (80-100) fL MCH 32.5 (26-34) PG MCHC 34.7 (30-36) % RDW 13.5 (11.6-14.8) % Plt Count 221 (150-400) X10^3/uL Neut % (Auto) 59.6 (50-75) % Lymph % (Auto) 29.6 (25-40) % [place] % (Auto) 6.2 (3-14) % Eos % (Auto) 3.8 (2-4) % Baso % (Auto) 0.8 (0-2) % Neut # (Auto) 4100 (6228-1643) /uL Lymph # (Auto) 2100 (1716-9557) /uL [place] # (Auto) 400 (0-900) /uL Eos # (Auto) 300 (0-450) /uL Baso # (Auto) 100 (0-100) /uL PT 11.7 (9.4-12.5) SECONDS INR 1.0 (0.9-1.3) APTT 35 (25.1-36.5) SECONDS Sodium 141 (137-145) mmol/L Potassium 4.0 (3.4-5.1) mmol/L Chloride 106 (98-107) mmol/L Carbon Dioxide 28 (22-32) mmol/L BUN 22 H (9-20) mg/dL Creatinine 1.10 (0.66-1.25) mg/dL Estimated GFR > 60 (>60) mL/min BUN/Creatinine Ratio 20.0 (6-22) Glucose 150 H (80-110) mg/dL Calcium 9.4 (8.4-10.2) mg/dL Magnesium 2.4 H (1.6-2.3) mg/dL Total Bilirubin 0.4 (0.2-1.3) mg/dL AST 25 (17-59) IU/L ALT 21 (<50) IU/L Alkaline Phosphatase 120 (38-126) U/L Total Creatine Kinase 149 (55-170) U/L Troponin I 0.019 0.053 H 0.115 H (0.01-0.034) ng/mL Total Protein 7.8 (6.3-8.2) g/dL Albumin 4.4 (3.5-5.0) g/dL Globulin 3.4 (1.7-4.1) g/dL Albumin/Globulin Ratio 1.3 (1.0-2.8) Lipase 92 (23-300) U/L ECG Data Attestation: I personally reviewed and interpreted this ECG as follows: Prior ECG tracings: available for review Interpretation: Sinus rhythm first-degree AV block, rate of 69 NC 284 QRS of 106 QTC of 447. Patient does not appear to have depression in lateral leads V4 through V6 which does appear new compared to prior from 11/24/2021. No clear ST elevation appreciated. EKG 2. Shows sinus rhythm first-degree AV block rate of 77 NC 262 QRS of [address] depression improves and V5 and 6 but is present in V4 and new and V3. No new elevation appreciated other segments appears similar. EKG 3. Sinus bradycardia with first-degree AV block rate of 57 NC 266 QRS of [address] depressions little bit present in lateral leads but has not improved overall, no acute elevation otherwise. MDM Narrative Medical decision making narrative: This is a 77-year-old male with known history of hypertension, dyslipidemia with family cardiac history. Patient received aspirin 324 mg prior to my evaluation has had left-sided chest pain that radiates to his back and shoulder woken from sleep this morning has not had similar symptoms in the past. EKGs concerning for cardiac source as well as patient's risk factors and family history. Patient's chart reviewed had myocardial perfusion scan in December of 2021 which showed normal perfusion study good exercise tolerance overall low risk scan at that time. Patient had aspirin 81 mg earlier today was given 3 additional 81 mg aspirin here in the department for total of 324 mg Nitro sublingual was given patient had improvement with 1st nitro but not with the 2nd. Was given additional dose of morphine also had minimal improvement was given a 2nd dose, patient appears more comfortable but states pain has not ever resolved. Labs CBC shows no acute change, coags are negative, BUN 22 creatinine is 1.10, electrolytes otherwise appropriate glucose 150 with magnesium 2.4 otherwise negative LFTs, troponin is negative initially. Repeat troponin has trended upwards to the indeterminate range from 0.019 to 0.053, 3rd troponin was sent at EKG show new ST depression lateral leads, on repeat EKGs patient did have dynamic depression into V3 but with some improvement in 5 and 6 on 30 EKG still present in lateral leads but has not improved overall with no new elevation on repeat EKGs. Chest x-ray shows no acute change CT angio chest abdomen pelvis shows 3 mm calcification left bladder base, could be recently passed bladder stone versus bladder wall calcification no aortic aneurysmal dilation, dissection or stenosis. Repeat EKGs does show some improvement in lateral leads depression, but does show depression now and V3 which was not present initially. Patient's symptoms are very suspicious and repeat troponin is indeterminate but has trended upwards. Discussed with Cardiology, Dr. Foley, plan for transfer for involving NSTEMI/ACS. Heparin, nitro gtt. Spoke with Dr. Barreto hospitalist at [facility], reviewed labs findings EKG changes patient has not ever been completely chest pain-free but has improved with nitro drip and heparin.. Patient accepted for transfer. Third troponin is technically indeterminate but has now trended up to 0.115 our cut off for positive at 0.12 On recheck patient describes chest pain as 1/10 but states it has definitely improved. He appears stable for transport. Critical Care Time Critical Care Time Critical Care Time: Yes Total Critical Care Time: 45 Attestation: The high probability of a clinically significant, sudden or life threatening deterioration of the [cardiac, pulm] system(s) required my full and direct attention, intervention and personal management. The aggregate critical care time was [] minutes. This time is in addition to time spent performing reported procedures but includes the following: [x] Data Review and interpretation [x] Patient assessment and monitoring of vital signs [x] Documentation [x] Medication orders and management Discharge Plan [facility]: Acute non-ST elevation myocardial infarction (NSTEMI) Prescriptions: No Action atorvastatin 20 mg tablet 20 mg PO DAILY terazosin 1 mg capsule 1 mg PO DAILY enalapril maleate 20 MG tablet 20 mg PO BID Qty: 0 verapamil 240 MG tablet extended release 240 mg PO BID Qty: 0 liothyronine [Cytomel] 5 MCG tablet 5 mcg PO QDAY Qty: 0 hydrochlorothiazide 25 MG tablet 25 mg PO QDAY Qty: 0 levothyroxine 112 MCG tablet 0.125 mg PO QDAY Qty: 0 CHOLECALCIFEROL (VITAMIN D3) (Vitamin D3) 400 unit PO QDAY Qty: 0 Patient Comments: hasn't taken in months Terazosin HCl (TERAZOSIN HCL) 1 mg PO QDAY Qty: 0 [RED YEAST RICE] QDAY Qty: 0 amlodipine 10 mg 10 mg magnesium 250 mg 250 mg potassium Referrals: Valeria Toney MD [Primary Care Provider] -
[2023-05-23] MEDS: NITROGLYCERIN 0.4 MG SL TAB SL ×2 (07:43→07:55)
[2023-05-23 07:50] LABS: Troponin I 0.019 ng/mL (0.01-0.034)
[2023-05-23] MEDS: SODIUM CHLORIDE 0.9% 1,000 ML 150 ML IV (07:55)
[2023-05-23] MEDS: ONDANSETRON 4 MG/2 ML INJ IV (07:55)
[2023-05-23] MEDS: MORPHINE 4 MG/ML INJ IV ×2 (08:13→08:54)
--- NOTE | 2023-05-23 08:35 | DI.CT.S_ITS ---
PROCEDURE: CT ANGIO CHEST ABDOMEN PELVIS INDICATIONS: left chest pain TECHNIQUE: Precontrast 5 mm thick sections acquired from the lung apices to the iliac crests. After the administration of intravenous contrast, 2.5 mm thick sections again acquired from the lung apices to the iliac crests. Maximum intensity projection (MIP) oblique sagittal and coronal reformats were then acquired. For radiation dose reduction, the following was used: automated exposure control. COMPARISON: None. FINDINGS: Image quality: Diagnostic. AORTA: No aortic aneurysm. No aneurysmal dilation or dissection. Atherosclerotic calcifications are present. CHEST: Lower Neck: No enlarged lymph nodes. Thyroid: No thyroid nodules which require sonographic evaluation. Axillae: No enlarged lymph nodes. Chest Wall: Unremarkable. Lungs and Pleura: No pneumothorax or pleural effusions. No consolidation or suspicious nodules. Heart: Heart size is normal. No pericardial effusion. Thoracic Vessels: Pulmonary arteries demonstrate normal size. Mediastinum and Penelope: No enlarged lymph nodes. Esophagus: No wall thickening. Mild hiatal hernia. ABDOMEN: Liver: No solid mass. Gallbladder: No radiopaque gallstones or wall thickening. Biliary ducts: No biliary dilation. Pancreas: No ductal dilation. Spleen: Size is within normal limits. Adrenal Glands: No adrenal nodules. Kidneys and Ureters: No hydronephrosis. No solid mass. No complex renal cystic lesion which requires follow up. No obstruction. Stomach and Bowel: Normal colonic caliber, without significant wall thickening. Scattered colonic diverticula are present without associated inflammatory change. Appendix is normal. Peritoneum: No abnormal intraperitoneal fluid. No free air. Ventral Wall: Fat containing umbilical hernia. Abdominal Nodes: No retroperitoneal or mesenteric adenopathy by size criteria. Vessels: Inferior vena cava is normal in size. PELVIS: Pelvic Organs: Prostate gland is enlarged. Bladder: 3 mm calcification is at the left bladder base. Pelvic Nodes: No enlarged lymph nodes. Miscellaneous: No inguinal hernias are seen. Bones: Unremarkable. IMPRESSION: 3 mm calcification at the left bladder base. This could represent a recently passed stone or bladder wall calcification as it is at the margin of the bladder. No priors are available for comparison. No obstruction. No aortic aneurysmal dilation, dissection or hemodynamically significant stenosis. Dictated by: Ju Bradley M.D. on 05/23/2023 at 9:04 Approved by: Ju Bradley M.D. on 05/23/2023 at 9:23
[2023-05-23 09:42] LABS: Troponin I 0.053 ng/mL (0.01-0.034)
[2023-05-23] MEDS: NITROGLYCERIN 50 MG/250 ML INFUS..BTL IV (10:02)
[2023-05-23] MEDS: HEPARIN 5,000 UNIT/ML VIAL 5000 UNIT IV (10:14)
[2023-05-23] MEDS: HEPARIN DRIP 25,000 UNIT/500 ML IV.SOLN 19.899 UNIT IV (10:18)
[2023-05-23 11:43] LABS: Troponin I 0.115 ng/mL (0.01-0.034)
[2023-05-23] MEDS: METOPROLOL IR 25 MG TABLET PO (11:43)
--- NOTE | 2023-05-23 12:51 | PC.NURSE ---
Patient left ED with nitro and heparin infusing at 1242 for transfer to .
== END 2023-05-23 12:42 | disposition short-term general hospital (02) ==
PROVIDERS: Emergency Provider Emergency Medicine; PCP Internal Medicine
DX: I21.4 Non-ST elevation (NSTEMI) myocardial infarction (principal); I44.0 Atrioventricular block, first degree
CPT/HCPCS: 36415; 71045; 71275; 74174; 80053; 82550; 83690; 83735; 84484; 85025; 85610; 85730; 93005; 93010; 96361; 96365; 96366; 96368; 96375; 96376; 99284; J1644; J2270; J2405; Q9967

== ENCOUNTER 2025-02-05 15:50 | Emergency (ER) | payer MEDICARE, SELFPAY ==
[2025-02-05] VITALS (7 sets, daily range): BP systolic 125–193; BP diastolic 68–98; PULSE 67–77; RESP 15–24; TEMP 36.4; O2SAT 94–96; BMI 33.2
--- OUTSIDE RECORDS SUMMARY | 2025-02-05 15:52 | XMS_ITS | Encounter Summary ---
Author Organization [facility] Address [address] [place] [address] Care Team Providers Care Emt Name Role Phone Valeria Toney Primary Care Provider [phone] Encounter Details Date Type Department Care Team (Late st Contact Info) Description 11/22/2023 [facility] Cardiology [id number] [facility], [place] [id number] Amanda Chao MD [address] [address] [place] [address] Social History Tobacco Use Types Packs/Day Years Used Date Smoking Tobacco: Former Cigarettes Smokeless Tobacco: Never PHQ-2 Answer Date Recorded PHQ-2 Score 1 07/21/2023 Sex and Gender Information Value Date Recorded Sex Assigned at Male 11/22/2023 6:23 AM PDT Legal Sex Male 12:56 PM PST Gender Identity Male 11/22/2023 6:23 AM PDT Sexual Orientation Not on file documented as of this encounter Plan of Treatment Not on file documented as of this encounter Visit Diagnoses Not on filedocumented in this encounter Care Teams Emt Relationship Specialty Start Date End Date Valeria Toney [address] [place], [place] [id number] PCP - General Internal Medicine 07/25/24 documented as of this encounter
--- NOTE | 2025-02-05 15:57 | DI.RAD.S_ITS ---
PROCEDURE: XR CHEST 1V INDICATIONS: Chest Pain TECHNIQUE: One view of the chest was acquired. COMPARISON: [facility], CR, XR CHEST 1V, 05/23/2023, 7:26. [facility], CR, XR CHEST 1V, 11/24/2021, 16:34. FINDINGS: Surgical changes and devices: None. Lungs and pleura: Lungs are clear. No pleural effusions or pneumothorax. Mediastinum: Mediastinal contours appear normal. Heart size is normal. Bones and chest wall: No suspicious bony lesions. Overlying soft tissues appear unremarkable. IMPRESSION: No acute cardiopulmonary abnormality is seen. Dictated by: Lawrence Patino M.D. on 02/05/2025 at 17:18 Approved by: Lawrence Patino M.D. on 02/05/2025 at 17:18
--- NOTE | 2025-02-05 16:05 | EKG_ITS ---
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
[2025-02-05 16:17] LABS: Add Manual Diff / Slide Review NO; Hematocrit 44.7 % (41-53); Hemoglobin 15.4 g/dL (13.5-17.5); Lymphocytes Absolute Auto 1900 /uL (1100-4500); Mean Corpuscular HGB Conc 34.5 % (30-36); Mean Corpuscular Hemoglobin 32.8 PG (26-34); Mean Corpuscular Volume 95.1 fL (80-100); Platelet Count 196 X10^3/uL (150-400)
[2025-02-05 16:18] LABS: INR 1.0 (0.9-1.3); Prothrombin Time 11.7 SECONDS (9.4-12.5)
[2025-02-05 16:21] LABS: PTT Partial Thromboplastin Tim 29 SECONDS (25.1-36.5)
--- NOTE | 2025-02-05 16:21 | ED.DIZZY ---
HPI - Dizziness General Chief Complaint: Dizziness Stated Complaint: dizzy, has cardiac stents, recent chest pressure Time Seen by Provider: 02/05/25 16:07 Source: patient Mode of arrival: Ambulatory History of Present Illness HPI Narrative: 79y M history of CAD with multiple stents, hypertension, dyslipidemia, hypothyroidism, BPH, presents with lightheadedness, chest pain intermittently for the last 5 days, and noticed black stool on bowel movement today and currently on Plavix. Patient denies headache, loss of consciousness, abdominal pain, nausea, vomiting, diarrhea, constipation, diaphoresis, leg pain, leg swelling. Other than what is stated 14 point review of system is negative. Related Data Home Medications ?Medication ?Instructions ?Recorded ?Confirmed CHOLECALCIFEROL (VITAMIN D3) 400 unit PO QDAY ##0 08/17/12 01/24/23 (Vitamin D3) Terazosin HCl (TERAZOSIN HCL) 1 mg PO QDAY ##0 08/17/12 01/24/23 [RED YEAST RICE] QDAY ##0 08/17/12 01/24/23 enalapril maleate 20 mg tablet 20 mg PO BID ##0 08/17/12 01/24/23 hydrochlorothiazide 25 mg tablet 25 mg PO QDAY ##0 08/17/12 01/24/23 levothyroxine 112 mcg tablet 0.125 mg PO QDAY ##0 08/17/12 01/24/23 liothyronine 5 mcg tablet (Cytomel) 5 mcg PO QDAY ##0 08/17/12 01/24/23 verapamil 240 mg tablet,extended 240 mg PO BID ##0 08/17/12 01/24/23 release amlodipine 10 mg 12/13/17 01/24/23 magnesium 250 mg 12/13/17 01/24/23 potassium 12/13/17 01/24/23 atorvastatin 20 mg tablet 20 mg PO DAILY 09/16/22 01/24/23 terazosin 1 mg capsule 1 mg PO DAILY 09/16/22 01/24/23 Allergies Allergy/AdvReac Type Severity Reaction Status Date / Time No Known Drug Allergies Allergy Verified 02/05/25 15:54 Review of Systems Review of Systems ROS Unobtainable: All systems reviewed & are unremarkable except as noted in HPI and below Patient History Medical History DVT (deep venous thrombosis) Hypertension Social History household members: spouse Smoking Status: Unknown if ever smoked Smoking Status: Unknown if ever smoked alcohol intake frequency: 0-2 drinks per day Alcohol type: hard liquor Exam Narrative Exam Narrative: GENERAL: [79] year old patient appears stated age. Well-developed patient, in mild distress. HEAD: Atraumatic. Normocephalic. EYES: Pupils equal round and reactive. Extraocular motions intact. No scleral icterus. No injection or drainage. ENT: Nose without bleeding, purulent drainage. Throat without erythema, tonsillar hypertrophy or exudate. Airway patent. NECK: Trachea midline. Non tender CARDIOVASCULAR: Regular rate and rhythm without murmurs, gallops, or rubs. RESPIRATORY: Clear to auscultation. Breath sounds equal bilaterally. No wheezes, rales, or rhonchi. GASTROINTESTINAL: Abdomen soft, non-tender, nondistended. Rectal: Hemoccult negative, neuro external hemorrhoids or fissure seen EXTREMITIES: No edema or joint tenderness. BACK: Nontender without deformity or crepitance. No flank tenderness. NEURO: AOx3. SKIN: No rash or erythema of visible areas Initial Vital Signs Initial Vital Signs: Vital Signs Temperature 97.6 F 02/05/25 15:50 Pulse Rate 67 02/05/25 15:50 Respiratory Rate 15 02/05/25 15:50 Blood Pressure 193/94 H 02/05/25 15:50 Pulse Oximetry 96 02/05/25 15:50 Oxygen Delivery Method Room Air 02/05/25 15:50 Course Orders Ordered: ED Orders 02/05/25 15:57 XR chest 1V Stat EKG-12 Lead Stat 02/05/25 16:00 Complete Blood Count AUTO DIFF Stat Comprehensive Metabolic Panel Stat Lipase Stat Magnesium Stat NT-proBNP (BNP-Adult 18+) Stat PTT Partial Thromboplastin Gal Stat Prothrombin Time INR Stat Troponin & CK Cardiac Panel Stat 02/05/25 16:20 CT angio Abd/Pel GI Bleed Stat CT head/brain wo con Stat 02/05/25 18:21 EKG-12 Lead Stat 02/05/25 18:33 Troponin I Stat Vital Signs Vital signs: Vital Signs - 8 hr 02/05/25 15:50 02/05/25 18:18 02/05/25 18:30 Temperature 97.6 F Pulse Rate 67 70 72 Respiratory Rate 15 24 Blood Pressure 193/94 H Pulse Oximetry 96 95 94 Oxygen Delivery Method Room Air 02/05/25 19:00 02/05/25 19:01 02/05/25 19:01 Temperature Pulse Rate 71 77 Respiratory Rate 19 21 Blood Pressure 178/98 H Pulse Oximetry 94 94 Oxygen Delivery Method Room Air MDM - Dizziness Lab Data 02/05/25 16:00 02/05/25 16:00 Labs: Lab Results 02/05/25 02/05/25 Range/Units 16:00 18:33 WBC 7.0 (4.5-11.0) X10^3/uL RBC 4.70 (4.5-5.9) X10^6/uL Hgb 15.4 (13.5-17.5) g/dL Hct 44.7 (41-53) % MCV 95.1 (80-100) fL MCH 32.8 (26-34) PG MCHC 34.5 (30-36) % RDW 13.6 (11.6-14.8) % Plt Count 196 (150-400) X10^3/uL Neut % (Auto) 62.4 (50-75) % Lymph % (Auto) 27.9 (25-40) % [place] % (Auto) 7.3 (3-14) % Eos % (Auto) 1.5 L (2-4) % Baso % (Auto) 0.9 (0-2) % Neut # (Auto) 4300 (9235-2220) /uL Lymph # (Auto) 1900 (6955-5300) /uL [place] # (Auto) 500 (0-900) /uL Eos # (Auto) 100 (0-450) /uL Baso # (Auto) 100 (0-100) /uL PT 11.7 (9.4-12.5) SECONDS INR 1.0 (0.9-1.3) APTT 29 (25.1-36.5) SECONDS Sodium 138 (137-145) mmol/L Potassium 3.9 (3.4-5.1) mmol/L Chloride 104 (98-107) mmol/L Carbon Dioxide 23 (22-32) mmol/L BUN 23 H (9-20) mg/dL Creatinine 1.39 H (0.66-1.25) mg/dL Estimated GFR 52 L (>60) mL/min BUN/Creatinine Ratio 16.5 (6-22) Glucose 97 (70-99) mg/dL Calcium 9.2 (8.4-10.2) mg/dL Magnesium 2.3 (1.6-2.3) mg/dL Total Bilirubin 0.6 (0.2-1.3) mg/dL AST 29 (17-59) IU/L ALT 21 (<50) IU/L Alkaline Phosphatase 76 (38-126) U/L Total Creatine Kinase 158 (55-170) U/L Troponin I < 0.012 < 0.012 (0.01-0.034) ng/mL NT-Pro-B Natriuret Pep 114 (<450) pg/mL Total Protein 7.5 (6.3-8.2) g/dL Albumin 4.7 (3.5-5.0) g/dL Globulin 2.8 (1.7-4.1) g/dL Albumin/Globulin Ratio 1.7 (1.0-2.8) Lipase 100 (23-300) U/L Imaging Data CT scan - head: Radiologist's Impression: [place] [address] CT Scan Report Signed Patient: Chan Palbo MR#: [id number] : 1945 Acct:[id number] Age/Sex: 79 / M Date of Service: 02/05/25 Loc: ED Accession Number: [id number] Procedure: CT head/brain wo con Ordering Provider: Tay Badillo D.O. PROCEDURE: CT HEAD/BRAIN WO CON INDICATIONS: dizziness TECHNIQUE: Noncontrast 4.5 mm thick angled axial sections acquired from the foramen magnum to the vertex, with coronal and sagittal reformats. For radiation dose reduction, the following was used: automated exposure control, adjustment of mA and/or kV according to patient size. COMPARISON: None. FINDINGS: Image quality: Diagnostic. CSF spaces: Basal cisterns are patent. No extra-axial fluid collections. The ventricles are symmetric in size and shape. Brain: No intracranial bleeds or mass effect. There is cerebral volume loss, with resultant ventricular and sulcal prominence. There are periventricular and deep white matter chronic small vessel ischemic changes. There is intracranial internal carotid artery atherosclerosis. Skull and face: Calvarium and visualized facial bones appear intact, without suspicious lesions. Sinuses: Visualized sinuses and mastoids are clear. IMPRESSION: No acute intracranial pathology. Dictated by: Angel oMss M.D. on 02/05/2025 at 17:19 Approved by: Angel Moss M.D. on 02/05/2025 at 17:20 CT scan - abdomen/pelvis: Radiologist's Impression: [place] [address] CT Scan Report Signed Patient: Chan Pablo MR#: [id number] : 1945 Acct:[id number] Age/Sex: 79 / M Date of Service: 02/05/25 Loc: ED Accession Number: [id number] Procedure: CT angio Abd/Pel GI Bleed Ordering Provider: Tay Badillo D.O. PROCEDURE: CT ANGIO ABD/PEL GI BLEED INDICATIONS: gi bleed TECHNIQUE: After the administration of intravenous contrast, 2.5 mm thick sections acquired from the diaphragm to the symphysis. 10 mm maximum-intensity projection (MIP) reformats were then acquired. For radiation dose reduction, the following was used: automated exposure control. COMPARISON: [facility], CT, CT ANGIO CHEST ABDOMEN PELVIS, 05/23/2023, 8:39. FINDINGS: Image Quality: Diagnostic. Abdominal aorta: No aortic aneurysm or evidence of acute aortic syndrome. OTHER: Lower Chest: No significant findings. Liver: No solid mass. Gallbladder: No radiopaque gallstones or wall thickening. Biliary ducts: No biliary dilation. Pancreas: No ductal dilation. Spleen: Size is within normal limits. Adrenal Glands: No adrenal nodules. Kidneys and Ureters: Rjpt-gw-[id number] right hydroureteronephrosis without obstructing stone seen. Again seen 4 mm calcification of the left bladder base versus ureterovesicular junction without significant hydroureter nephrosis. No solid mass. No complex renal cystic lesion which requires follow up. Stomach and Bowel: Normal colonic caliber, without significant wall thickening. Diverticulosis without evidence of acute diverticulitis. No definite active contrast extravasation into the bowel is identified. Normal appendix. Peritoneum: No abnormal intraperitoneal fluid. No free air. Ventral Wall: No hernia. Abdominal Nodes: No retroperitoneal or mesenteric adenopathy by size criteria. Vessels: Aorta and inferior vena cava are normal in size. Atherosclerotic vascular calcifications. PELVIS: Pelvic Organs: Prostatomegaly. The left posterior wall is ill-defined and asymmetrically prominent (5/189), unclear if this represents a mass or adjacent seminal vesicles. Bladder: Unremarkable. Pelvic Nodes: No enlarged lymph nodes. Miscellaneous: No inguinal hernias are seen. Bones: No aggressive osseous abnormality. Multilevel degenerative changes of the spine. IMPRESSION: 1. No findings concerning for active contrast extravasation into the bowel. 2. Diverticulosis without evidence of acute diverticulitis. 3. Ecee-eb-hxjpnbfy right hydroureteronephrosis without cause for obstruction identified. This is new compared to prior. 4. Prostatomegaly. Ill-defined appearance with asymmetric prominence of the left posterior wall. Differential includes mass versus adjacent seminal vesicles. This is new/more prominent compared to prior. Recommend correlation with PSA and consider nonurgent prostate MRI. 5. Please see above for additional findings. Dictated by: Angel Moss M.D. on 02/05/2025 at 17:35 Approved by: Angel Moss M.D. on 02/05/2025 at 17:44 ECG Data Interpretation: NSR HR 73 CA 268 QRS [address]-t wave change Unchanged from 05/23/23 [facility] Narrative Medical decision making narrative: All lab work vital signs nurse triage note medication list previous ER visits in all imaging studies reviewed. CT abdomen angio findings concerning for active contrast extravasation into the bowel. Diverticulosis without evidence of acute diverticulitis. Vdda-zt-[id number] right hydroureteronephrosis without cause for obstruction identified. Prostatomegaly ill-defined appearance with asymmetric prominence of the left posterior wall. WBC 7.0 hemoglobin 15.4 platelet 196 CMP normal except BUN 23 creatinine 1.39 1st set troponin normal BNP 114. 2 sets troponin normal. WIll have pt f/u with urologist and f/u with abram brown for cath vs stress test. Differential diagnosis STEMI NSTEMI unstable angina aneurysm hemorrhage CVA vertigo dehydration. Discharge Plan Departure Patient Disposition: Home Clinical Impression: Dizziness, Chest pain, Enlarged prostate Instructions: DI for Chest Pain Activity Restrictions/Additional Instructions: Return with new or worsening symptoms. Follow up with manager of global next week call office for appointment. Follow up with regarding enlarged prostate call office for appointment. [phone] Prescriptions: No Action atorvastatin 20 mg tablet 20 mg PO DAILY terazosin 1 mg capsule 1 mg PO DAILY enalapril maleate 20 MG tablet 20 mg PO BID Qty: 0 verapamil 240 MG tablet extended release 240 mg PO BID Qty: 0 liothyronine [Cytomel] 5 MCG tablet 5 mcg PO QDAY Qty: 0 hydrochlorothiazide 25 MG tablet 25 mg PO QDAY Qty: 0 levothyroxine 112 MCG tablet 0.125 mg PO QDAY Qty: 0 CHOLECALCIFEROL (VITAMIN D3) (Vitamin D3) 400 unit PO QDAY Qty: 0 Patient Comments: hasn't taken in months Terazosin HCl (TERAZOSIN HCL) 1 mg PO QDAY Qty: 0 [RED YEAST RICE] QDAY Qty: 0 amlodipine 10 mg 10 mg magnesium 250 mg 250 mg potassium Referrals: Valeria Toney MD [Primary Care Provider, Internal Medicine] Stand Alone Forms: Patient Portal/API
[2025-02-05 16:25] LABS: Alanine Aminotransferase 21 IU/L (<50); Albumin 4.7 g/dL (3.5-5.0); Albumin Globulin Ratio 1.7 (1.0-2.8); Alkaline Phosphatase 76 U/L (38-126); Blood Urea Nitrogen 23 mg/dL (9-20); Calcium 9.2 mg/dL (8.4-10.2); Carbon Dioxide 23 mmol/L (22-32); Chloride 104 mmol/L (98-107); Creatine Kinase 158 U/L (55-170); Estimated Glomerular Filt Rate 52 mL/min (>60); Globulin 2.8 g/dL (1.7-4.1); Glucose 97 mg/dL (70-99); HEMOLYSIS < 15 (0-50); Lipase 100 U/L (23-300); Magnesium 2.3 mg/dL (1.6-2.3); Potassium 3.9 mmol/L (3.4-5.1); Sodium 138 mmol/L (137-145); Total Protein 7.5 g/dL (6.3-8.2)
[2025-02-05 16:37] LABS: NT-proBNP (BNP-Adult 18+) 114 pg/mL (<450); Troponin I < 0.012 ng/mL (0.01-0.034)
--- NOTE | 2025-02-05 18:25 | EKG_ITS ---
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
[2025-02-05 19:07] LABS: Troponin I < 0.012 ng/mL (0.01-0.034)
== END 2025-02-05 19:40 | disposition home or self-care (01) ==
PROVIDERS: Emergency Provider Family Medicine; Family Provider Internal Medicine; PCP Internal Medicine
DX: R42 Dizziness and giddiness (principal); R07.89 Other chest pain; N40.0 Benign prostatic hyperplasia without lower urinary tract symptoms; I10 Essential (primary) hypertension; Z95.5 Presence of coronary angioplasty implant and graft
CPT/HCPCS: 36415; 70450; 71045; 74174; 80053; 81003; 82550; 83690; 83735; 83880; 84484; 85025; 85610; 85730; 93005; 93010; 99283; 99284; Q9967

== ENCOUNTER → 2025-02-11 08:32 | Outpatient (CLI) | payer MEDICARE, SELFPAY ==
[2025-02-11 09:56] LABS: Prostate Specific Antigen 1.70 ng/mL (0.10-4.00)
== END ==
PROVIDERS: Family Provider Internal Medicine; PCP Internal Medicine; Referring Provider Urology; Visit Provider Urology
DX: N40.1 Benign prostatic hyperplasia with lower urinary tract symptoms (principal)
CPT/HCPCS: 36415; 84153